=== PATIENT | male | born 1945 | race African-American/Black ===

== ENCOUNTER → 2020-08-16 13:28 | Outpatient (BNVA) | payer MEDICARE, SELFPAY | PROVIDERS: PCP Internal Medicine; Visit Provider Internal Medicine | DX: I48.20 Chronic atrial fibrillation, unspecified (principal); Z51.81 Encounter for therapeutic drug level monitoring; Z79.01 Long term (current) use of anticoagulants | CPT/HCPCS: 85610 ==

== ENCOUNTER → 2020-09-06 11:18 | Outpatient (BNVA) | payer MEDICARE, SELFPAY | PROVIDERS: PCP Internal Medicine; Referring Provider Internal Medicine; Visit Provider Internal Medicine | DX: I48.20 Chronic atrial fibrillation, unspecified (principal); Z79.01 Long term (current) use of anticoagulants; Z51.81 Encounter for therapeutic drug level monitoring | CPT/HCPCS: 85610; 99211 ==

== ENCOUNTER → 2020-09-30 10:28 | Outpatient (BNVA) | payer MEDICARE, SELFPAY | PROVIDERS: PCP Internal Medicine; Visit Provider Internal Medicine | DX: I48.20 Chronic atrial fibrillation, unspecified (principal); Z51.81 Encounter for therapeutic drug level monitoring; Z79.01 Long term (current) use of anticoagulants | CPT/HCPCS: 85610; 99211 ==

== ENCOUNTER → 2020-10-23 11:07 | Outpatient (BNVA) | payer MEDICARE, SELFPAY | PROVIDERS: PCP Internal Medicine; Visit Provider Internal Medicine | DX: I48.20 Chronic atrial fibrillation, unspecified (principal); Z79.01 Long term (current) use of anticoagulants; Z51.81 Encounter for therapeutic drug level monitoring | CPT/HCPCS: 85610; 99211 ==

== ENCOUNTER → 2020-11-11 10:02 | Outpatient (BNVA) | payer MEDICARE, SELFPAY | PROVIDERS: PCP Internal Medicine; Visit Provider Internal Medicine | DX: I48.20 Chronic atrial fibrillation, unspecified (principal); Z79.01 Long term (current) use of anticoagulants; Z51.81 Encounter for therapeutic drug level monitoring | CPT/HCPCS: 85610; 99211 ==

== ENCOUNTER → 2020-11-15 11:15 | Outpatient (BNVA) | payer MEDICARE, SELFPAY | PROVIDERS: PCP Internal Medicine; Visit Provider Internal Medicine | DX: I48.20 Chronic atrial fibrillation, unspecified (principal); Z51.81 Encounter for therapeutic drug level monitoring; Z79.01 Long term (current) use of anticoagulants | CPT/HCPCS: 85610; 99211 ==

== ENCOUNTER → 2020-11-22 10:05 | Outpatient (BNVA) | payer MEDICARE, SELFPAY | PROVIDERS: PCP Internal Medicine; Visit Provider Internal Medicine | DX: I48.20 Chronic atrial fibrillation, unspecified (principal); Z51.81 Encounter for therapeutic drug level monitoring; Z79.01 Long term (current) use of anticoagulants | CPT/HCPCS: 85610; 99211 ==

== ENCOUNTER → 2020-12-10 09:55 | Outpatient (BNVA) | payer MEDICARE, SELFPAY | PROVIDERS: PCP Internal Medicine; Visit Provider Internal Medicine | DX: I48.20 Chronic atrial fibrillation, unspecified (principal); Z51.81 Encounter for therapeutic drug level monitoring; Z79.01 Long term (current) use of anticoagulants | CPT/HCPCS: 85610; 99211 ==

== ENCOUNTER → 2020-12-20 10:05 | Outpatient (BNVA) | payer MEDICARE, SELFPAY | PROVIDERS: PCP Internal Medicine; Visit Provider Internal Medicine | DX: I48.20 Chronic atrial fibrillation, unspecified (principal); Z51.81 Encounter for therapeutic drug level monitoring; Z79.01 Long term (current) use of anticoagulants | CPT/HCPCS: 85610; 99211 ==

== ENCOUNTER → 2020-12-27 11:14 | Outpatient (BNVA) | payer MEDICARE, SELFPAY | PROVIDERS: PCP Internal Medicine; Visit Provider Internal Medicine | DX: I48.20 Chronic atrial fibrillation, unspecified (principal); Z51.81 Encounter for therapeutic drug level monitoring; Z79.01 Long term (current) use of anticoagulants | CPT/HCPCS: 85610; 99211 ==

== ENCOUNTER → 2021-01-10 13:00 | Outpatient (BNVA) | payer MEDICARE, SELFPAY | PROVIDERS: PCP Internal Medicine; Visit Provider Internal Medicine | DX: I48.20 Chronic atrial fibrillation, unspecified (principal); Z51.81 Encounter for therapeutic drug level monitoring; Z79.01 Long term (current) use of anticoagulants | CPT/HCPCS: 85610; 99211 ==

== ENCOUNTER → 2021-01-22 10:06 | Outpatient (BNVA) | payer MEDICARE, SELFPAY | PROVIDERS: PCP Internal Medicine; Visit Provider Internal Medicine | DX: I48.20 Chronic atrial fibrillation, unspecified (principal); Z51.81 Encounter for therapeutic drug level monitoring; Z79.01 Long term (current) use of anticoagulants | CPT/HCPCS: 85610; 99211 ==

== ENCOUNTER → 2021-01-30 10:34 | Outpatient (BNVA) | payer MEDICARE, SELFPAY | PROVIDERS: PCP Internal Medicine; Visit Provider Internal Medicine | DX: I48.20 Chronic atrial fibrillation, unspecified (principal); Z51.81 Encounter for therapeutic drug level monitoring; Z79.01 Long term (current) use of anticoagulants | CPT/HCPCS: 85610; 99211 ==

== ENCOUNTER → 2021-02-10 09:33 | Outpatient (BNVA) | payer MEDICARE, SELFPAY | PROVIDERS: PCP Internal Medicine; Visit Provider Internal Medicine | DX: I48.20 Chronic atrial fibrillation, unspecified (principal); Z79.01 Long term (current) use of anticoagulants; Z51.81 Encounter for therapeutic drug level monitoring | CPT/HCPCS: 85610; 99211 ==

== ENCOUNTER → 2021-02-18 11:19 | Outpatient (BNVA) | payer MEDICARE, SELFPAY | PROVIDERS: PCP Internal Medicine; Visit Provider Internal Medicine | DX: I48.20 Chronic atrial fibrillation, unspecified (principal); Z79.01 Long term (current) use of anticoagulants; Z51.81 Encounter for therapeutic drug level monitoring | CPT/HCPCS: 85610; 99211 ==

== ENCOUNTER → 2021-02-28 09:57 | Outpatient (BNVA) | payer MEDICARE, SELFPAY | PROVIDERS: PCP Internal Medicine; Visit Provider Internal Medicine | DX: I48.20 Chronic atrial fibrillation, unspecified (principal); Z51.81 Encounter for therapeutic drug level monitoring; Z79.01 Long term (current) use of anticoagulants | CPT/HCPCS: 85610; 99211 ==

== ENCOUNTER → 2021-03-07 10:20 | Outpatient (BNVA) | payer MEDICARE, SELFPAY | PROVIDERS: PCP Internal Medicine; Visit Provider Internal Medicine | DX: I48.20 Chronic atrial fibrillation, unspecified (principal); Z79.01 Long term (current) use of anticoagulants; Z51.81 Encounter for therapeutic drug level monitoring | CPT/HCPCS: 85610; 99211 ==

== ENCOUNTER → 2021-03-14 09:38 | Outpatient (BNVA) | payer MEDICARE, SELFPAY | PROVIDERS: PCP Internal Medicine; Visit Provider Internal Medicine | DX: I48.20 Chronic atrial fibrillation, unspecified (principal); Z51.81 Encounter for therapeutic drug level monitoring; Z79.01 Long term (current) use of anticoagulants | CPT/HCPCS: 85610; 99211 ==

== ENCOUNTER → 2021-03-28 10:08 | Outpatient (BNVA) | payer MEDICARE, SELFPAY | PROVIDERS: PCP Internal Medicine; Visit Provider Internal Medicine | DX: I48.20 Chronic atrial fibrillation, unspecified (principal); Z51.81 Encounter for therapeutic drug level monitoring; Z79.01 Long term (current) use of anticoagulants | CPT/HCPCS: 85610; 99211 ==

== ENCOUNTER → 2021-04-07 10:08 | Outpatient (BNVA) | payer MEDICARE, SELFPAY | PROVIDERS: PCP Internal Medicine; Visit Provider Internal Medicine | DX: I48.20 Chronic atrial fibrillation, unspecified (principal); Z51.81 Encounter for therapeutic drug level monitoring; Z79.01 Long term (current) use of anticoagulants | CPT/HCPCS: 85610; 99211 ==

== ENCOUNTER 2021-04-11 10:14 | Outpatient (REF) | payer MEDICARE, SELFPAY ==
--- NOTE | ~2021-04-11 | XR_ITS ---
EXAMINATION: XR HIP, LEFT CLINICAL INFORMATION: Left hip osteoarthritis. COMPARISON: None TECHNIQUE: Two views of the left hip. FINDINGS: There is no evidence of acute fracture or dislocation of the left hip. There is collar spurring present with some calcification of the superior labrum. There is some spurring about the greater trochanter. No destructive bony lesions identified. XR/XR hip LT min 2V IMPRESSION: Mild degenerative change of the left hip without acute fracture or dislocation. Calcific tendinitis greater trochanter.
== END 2021-04-11 10:15 | disposition home or self-care (01) ==
LOC: HO.XRAY 10:14
PROVIDERS: PCP Internal Medicine; Visit Provider Physical Medicine & Rehabilitation
DX: M16.12 Unilateral primary osteoarthritis, left hip (principal)
CPT/HCPCS: 73502; 85610; 99211

== ENCOUNTER → 2021-04-17 09:54 | Outpatient (BNVA) | payer MEDICARE, SELFPAY | PROVIDERS: PCP Internal Medicine; Visit Provider Internal Medicine | DX: I48.20 Chronic atrial fibrillation, unspecified (principal); Z51.81 Encounter for therapeutic drug level monitoring; Z79.01 Long term (current) use of anticoagulants | CPT/HCPCS: 85610; 99211 ==

== ENCOUNTER → 2021-04-25 09:58 | Outpatient (BNVA) | payer MEDICARE, SELFPAY | PROVIDERS: PCP Internal Medicine; Visit Provider Internal Medicine | DX: I48.20 Chronic atrial fibrillation, unspecified (principal); Z51.81 Encounter for therapeutic drug level monitoring; Z79.01 Long term (current) use of anticoagulants | CPT/HCPCS: 85610; 99211 ==

== ENCOUNTER → 2021-05-01 13:03 | Outpatient (BNVA) | payer MEDICARE, SELFPAY | PROVIDERS: PCP Internal Medicine; Visit Provider Internal Medicine | DX: I48.20 Chronic atrial fibrillation, unspecified (principal); Z51.81 Encounter for therapeutic drug level monitoring; Z79.01 Long term (current) use of anticoagulants | CPT/HCPCS: 85610; 99211 ==

== ENCOUNTER → 2021-05-09 10:54 | Outpatient (BNVA) | payer MEDICARE, SELFPAY | PROVIDERS: PCP Internal Medicine; Visit Provider Internal Medicine | DX: I48.20 Chronic atrial fibrillation, unspecified (principal); Z51.81 Encounter for therapeutic drug level monitoring; Z79.01 Long term (current) use of anticoagulants | CPT/HCPCS: 85610; 99211 ==

== ENCOUNTER → 2021-05-16 10:05 | Outpatient (BNVA) | payer MEDICARE, SELFPAY | PROVIDERS: PCP Internal Medicine; Visit Provider Internal Medicine | DX: I48.20 Chronic atrial fibrillation, unspecified (principal); Z51.81 Encounter for therapeutic drug level monitoring; Z79.01 Long term (current) use of anticoagulants | CPT/HCPCS: 85610; 99211 ==

== ENCOUNTER → 2021-05-27 10:24 | Outpatient (BNVA) | payer MEDICARE, SELFPAY | PROVIDERS: PCP Internal Medicine; Visit Provider Internal Medicine | DX: I48.20 Chronic atrial fibrillation, unspecified (principal); Z51.81 Encounter for therapeutic drug level monitoring; Z79.01 Long term (current) use of anticoagulants | CPT/HCPCS: 85610; 99211 ==

== ENCOUNTER 2021-06-03 09:49 | Outpatient (REF) | payer MEDICARE, SELFPAY ==
--- NOTE | ~2021-06-03 | XR_ITS ---
EXAMINATION: XR HIP, RIGHT CLINICAL INFORMATION: Pain. COMPARISON: CT abdomen and pelvis dated 02/23/2017. TECHNIQUE: AP and frog-leg lateral views of the right hip. FINDINGS: There is mild bony demineralization. There is mild narrowing of the right acetabular joint space. The right acetabular roof shows cortical surface irregularity and subchondral sclerosis. There is subchondral cyst formation of the right femoral head, which remains smooth. There is no acute fracture or dislocation. There are atherosclerotic calcifications. XR/XR hip RT min 2V IMPRESSION: Mild to moderate osteoarthritic change is seen of the right hip. There is no fracture or dislocation.
== END 2021-06-03 09:50 | disposition home or self-care (01) ==
LOC: HO.XRAY 09:49
PROVIDERS: Absent Provider Physician Assistant; PCP Internal Medicine; Visit Provider Internal Medicine
DX: I48.20 Chronic atrial fibrillation, unspecified (principal); M25.551 Pain in right hip; Z51.81 Encounter for therapeutic drug level monitoring; Z79.01 Long term (current) use of anticoagulants
CPT/HCPCS: 73502; 85610; 99211

== ENCOUNTER → 2021-06-12 10:02 | Outpatient (BNVA) | payer MEDICARE, SELFPAY | PROVIDERS: PCP Internal Medicine; Visit Provider Internal Medicine | DX: I48.20 Chronic atrial fibrillation, unspecified (principal); Z51.81 Encounter for therapeutic drug level monitoring; Z79.01 Long term (current) use of anticoagulants | CPT/HCPCS: 85610; 99211 ==

== ENCOUNTER → 2021-06-18 11:11 | Outpatient (BNVA) | payer MEDICARE, SELFPAY | PROVIDERS: PCP Internal Medicine; Visit Provider Internal Medicine | DX: I48.20 Chronic atrial fibrillation, unspecified (principal); Z51.81 Encounter for therapeutic drug level monitoring; Z79.01 Long term (current) use of anticoagulants | CPT/HCPCS: 85610; 99211 ==

== ENCOUNTER → 2021-07-02 10:38 | Outpatient (BNVA) | payer MEDICARE, SELFPAY | PROVIDERS: PCP Internal Medicine; Visit Provider Internal Medicine | DX: I48.20 Chronic atrial fibrillation, unspecified (principal); Z51.81 Encounter for therapeutic drug level monitoring; Z79.01 Long term (current) use of anticoagulants | CPT/HCPCS: 85610; 99211 ==

== ENCOUNTER 2023-06-04 08:36 | Day surgery (SDC) | payer MEDICARE, SELFPAY ==
[2023-06-04 06:29] VITALS: BMI 33.2
[2023-06-04 08:53] VITALS: BP 139/82; PULSE 79; RESP 20; TEMP 36.9; O2SAT 99
[2023-06-04 08:54] LABS: Glucose, Whole Blood 116 mg/dL (60-115)
[2023-06-04] MEDS: Lactated Ringers 1,000 ML 100 ML IVCONT (09:19)
[2023-06-04 09:21] LABS: INTERNATIONAL NORM RATIO 1.1 (0.9-1.1); Prothrombin Time 13.5 SEC (11.1-13.3)
--- NOTE | 2023-06-04 09:31 | P.CONAN_ITS ---
HPI - Anesthesia Eval Consult details Narrative: sceening PMFSH Active Problems Active Problems: All Active Problems (Updated 06/03/23 @ 13:41 by Coral Wood RN) Current use of anticoagulant therapy (Acute) Past Medical History Medical History (Updated 06/03/23 @ 13:41 by Coral Wood RN) Arthritis Atrial fibrillation BPH (benign prostatic hyperplasia) Depression Diabetes Diverticulosis HTN (hypertension) Hyperlipidemia Pacemaker Parkinsons Family History Family history of problems with anesthesia: No Surgical History Surgical History (Updated 06/03/23 @ 13:41 by Coral Wood RN) H/O colonoscopy H/O hernia repair History of left knee replacement History of right knee joint replacement History of Problems with Anesthesia: No Social History Social History Patient Tobacco Use Status: Former Tobacco user Are you DNR?: No Advance Directives: No Advance Directives Information Provided: Yes Nutrition Risks: No Nutritional Risk Meds Allergies Allergy/AdvReac Type Severity Reaction Status Date / Time hydrochlorothiazide Allergy Severe syncope Verified 07/02/21 10:42 falls chlorothiazide Allergy Unknown PASSES Verified 07/02/21 10:42 [CHLOROTHIAZIDE] OUT chlorthalidone Allergy Unknown UNKNOWN Verified 07/02/21 10:42 Active Medications: Current Medications Lactated Ringer's (Lr) 1,000 mls @ 100 mls/hr IVCONT .Q10H JOSE J Last Admin: 06/04/23 09:19 Dose: 100 mls/hr Home Medications Medication Instructions Recorded Confirmed Last Taken Type allopurinol 300 mg tablet mg PO 11/11/20 06/12/21 Unknown History blood sugar diagnostic #10 ea 11/11/20 06/12/21 Unknown History bupropion HCl 300 mg 24 hr tablet, 300 mg PO DAILY 11/11/20 06/12/21 Unknown History extended release ergocalciferol (vitamin D2) 1,250 1,250 mcg PO QWEEK 11/11/20 06/12/21 Unknown History mcg (50,000 unit) capsule insulin glargine 100 unit/mL (3 unit subcut 11/11/20 06/12/21 Unknown History mL) subcutaneous pen lisinopril 40 mg tablet mg PO 11/11/20 06/12/21 Unknown History metformin 500 mg tablet,extended 500 mg PO DAILY 11/11/20 06/12/21 Unknown History release 24 hr oxycodone-acetaminophen 5 mg-325 tab PO 11/11/20 06/12/21 Unknown History mg tablet pen needle, diabetic 31 gauge x #50 ea 11/11/20 06/12/21 Unknown History 01/14 pravastatin 80 mg tablet 80 mg PO DAILY 11/11/20 06/12/21 Unknown History tamsulosin 0.4 mg capsule mg PO 11/11/20 06/12/21 Unknown History citalopram 20 mg tablet 20 mg PO DAILY 01/22/21 06/12/21 Unknown History nifedipine 30 mg tablet,extended mg PO 01/30/21 06/12/21 Unknown History release nadolol 20 mg tablet 20 mg PO DAILY 03/07/21 06/12/21 Unknown History colchicine (gout) 0.6 mg tablet 0.6 mg PO DAILY 06/12/21 06/12/21 Unknown Histor y furosemide 40 mg tablet 40 mg PO DAILY 06/12/21 06/12/21 Unknown History Exam Exam Date and Time: June 04, 2023 0931 Height,Weight and Vital Signs: Height 5 ft 7.5 in Weight 97.522 kg Last Vital Signs Temp 98.4 F 06/04/23 08:53 Pulse 79 06/04/23 08:53 Resp 20 06/04/23 08:53 BP 139/82 06/04/23 08:53 Pulse Ox 99 06/04/23 08:53 O2 Del Method Room Air 06/04/23 08:53 Pertinent Lab Results Pertinent Lab Results: Laboratory Tests 06/04/23 06/04/23 08:48 09:00 PT 13.5 H INR 1.1 POC Glucose 116 H Airway Mallampati Class: II TM Dist: >3cm Neck ROM: Full Heart: rr Lungs: cts Assessment and Plan Assessment Anesthesia Assessment: Anesthesia Plan Discussed and Chart Reviewed Final Anesthetic Review Family History of Problems with Anesthesia: No History of Problems with Anesthesia: No NPO: Yes ASA Class: II Final Preanesthetic Review: No Changes in Pt Med Stat, Meds/Allgs Chart Reviewed, Consent Obtained/Reviewed and Anes Risks/Benef Reviewed Patient Risk: Low Procedure Risk: Low Anesthetic Plan Anesthetic Plan: MAC: Disposition: Standard PACU
--- NOTE | 2023-06-04 09:56 | MHC.SHP ---
Pre-Procedural Eval Section A Date of Service: 06/04/23 Section B Chief Complaint: Other fecal abnormalities Details of Present Illness: see H&P Relevant Family History (Specify if Yes): No Relevant Social History: None Present Medications: see Short Stay Collaborative assessment Medical History: No relevant PMH History of Previous Operations: No relevant previous surgery Allergies: Allergies Allergy/AdvReac Type Severity Reaction Status Date / Time hydrochlorothiazide Allergy Severe syncope Verified 07/02/21 10:42 falls chlorothiazide Allergy Unknown PASSES Verified 07/02/21 10:42 [CHLOROTHIAZIDE] OUT chlorthalidone Allergy Unknown UNKNOWN Verified 07/02/21 10:42 Review of Systems Sugical H&P ROS: Negative: Constitution, Cardiovascular, Respiratory, Neurological, Psychiatric, Hem-Onc, Allergic/Immunologic, Gastrointestinal, Genitourinary, Musculoskeletal, Integumentary, Endocrine and Eyes/Ears/Nose/Throat Exam Surgical H&P Exam: Normal: HEENT, Normal: Heart, Normal: Lungs, Normal: Extremities, Normal: Abdomen, Normal: Skin and Normal: Neurological Plan Diagnosis/Plan: Unchanged I have reviewed the history and physical and performed a pertinent physical examination on my patient. No changes have occurred unless specified. Time Spent With Patient Time: Total time managing care of this patient today ____ minutes.
[2023-06-04 11:05] VITALS: BP 112/64; PULSE 73; RESP 16; TEMP 36.1; O2SAT 96
--- NOTE | 2023-06-04 11:13 | P.BOP_ITS ---
Brief Operative Note Date of Service: 06/04/23 Pre-op diagnosis: bloodbl Surgeon: Yves Aquino Was an Protein Specialist used for this Procedure?: No
[2023-06-04 11:20] VITALS: BP 152/85; PULSE 85; RESP 20; TEMP 36.4; O2SAT 98
--- NOTE | 2023-06-04 13:30 | OP_ITS ---
DATE OF SERVICE: 06/04/2023 SURGEON: Yves Aquino MD INDICATIONS: Blood in the stool. PREOPERATIVE DIAGNOSIS: POSTOPERATIVE DIAGNOSIS: PROCEDURE PERFORMED: Upper endoscopy with biopsy, colonoscopy to the terminal ileum. ESTIMATED BLOOD LOSS: COMPLICATIONS: ANESTHESIA: Monitored anesthesia care. ASSISTANTS: SPECIMENS: DESCRIPTION OF PROCEDURE: A history and physical was performed. The risks and benefits of the procedure were explained to the patient. Informed consent was obtained. The patient was placed in the left lateral decubitus position. The Olympus video gastroscope was introduced into the esophagus, stomach, and duodenum. Examination was performed, and the scope was removed. He tolerated the procedure well, was repositioned for colonoscopy. Digital rectal exam was performed and was found to be normal. The Olympus pediatric video colonoscope was introduced into the rectum and advanced to the cecum. The cecum was identified by transillumination, palpation, and identification of the ileocecal valve. Examination was performed. The scope was removed. He tolerated both procedures well and was returned to the recovery area in stable condition. FINDINGS: Upper endoscopy: 1. Esophagus: The esophagus was normal. There was a 2 to 3 cm hiatal hernia. 2. Stomach: The stomach was normal. Antral biopsies were obtained. 3. Duodenum: The bulb and 2nd portion were normal. Colonoscopy: The terminal ileum was normal. The visualized colonic mucosa was normal. The quality of the prep was good. The sigmoid was quite tortuous due to diverticular disease with luminal narrowing and angulation. This made it somewhat challenging to pass the scope, but it was able to go through the narrowed area. No mass lesions were identified. Diverticulosis was noted to a moderate degree. No polyps were seen. Retroflexed examination showed some internal hemorrhoids. IMPRESSION: 1. Hiatal hernia. 2. Unremarkable colonoscopy, diverticulosis. RECOMMENDATION: 1. Follow up the biopsy results. 2. Colon cancer screening is not recommended based on the patient's age. MD VALERIY Riddle/GISELL / [phone]
== END 2023-06-04 11:50 | disposition home or self-care (01) ==
PROVIDERS: Anesthesiology; PCP Internal Medicine; Visit Provider Internal Medicine Gastroenterology
PROC: (CPT 45378; principal; 2023-06-04 09:30)
DX: R19.5 Other fecal abnormalities (principal); K57.30 Diverticulosis of large intestine without perforation or abscess without bleeding; K64.8 Other hemorrhoids; K59.00 Constipation, unspecified; K44.9 Diaphragmatic hernia without obstruction or gangrene; N40.0 Benign prostatic hyperplasia without lower urinary tract symptoms; I10 Essential (primary) hypertension; I48.91 Unspecified atrial fibrillation; Z95.0 Presence of cardiac pacemaker; G20 Parkinson's disease; E78.00 Pure hypercholesterolemia, unspecified; F32.A Depression, unspecified; Z79.01 Long term (current) use of anticoagulants; Z79.84 Long term (current) use of oral hypoglycemic drugs; Z79.899 Other long term (current) drug therapy; Z96.653 Presence of artificial knee joint, bilateral; Z87.891 Personal history of nicotine dependence
CPT/HCPCS: 45378; 43239; 36415; 82947; 85610; 88305; 88342

== ENCOUNTER 2023-07-23 08:51 | Outpatient (AMB) | payer MEDICARE, SELFPAY ==
--- NOTE | 2023-07-23 09:11 | A.OFFVIS_ITS ---
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 Allergies hydrochlorothiazide Allergy (Severe, Verified 07/23/23 09:12) syncope falls chlorothiazide [CHLOROTHIAZIDE] Allergy (Unknown, Verified 07/23/23 09:12) PASSES OUT chlorthalidone Allergy (Unknown, Verified 07/23/23 09:12) UNKNOWN Medication List - Last Reconciled 07/23/23 by Autumn Davis MD allopurinol mg PO amlodipine 10 mg PO DAILY atorvastatin 40 mg PO DAILY blood sugar diagnostic As directed bupropion HCl 300 mg PO DAILY carbidopa-levodopa 25-100 mg 1 tab PO BID citalopram 20 mg PO DAILY colchicine (gout) 0.6 mg PO DAILY ergocalciferol (vitamin D2) 1,250 mcg PO QWEEK flash glucose scanning reader (FreeStyle Asif 2 [place]) As directed flash glucose sensor (FreeStyle Asif 2 Sensor kit) As directed furosemide 40 mg PO DAILY furosemide 20 mg PO BID insulin glargine units subcut insulin glargine U-300 conc (Toujeo SoloStar U-300 Insulin) units subcut lisinopril mg PO metformin ER 500 mg PO DAILY metoprolol succinate ER 25 mg PO DAILY nadolol 20 mg PO DAILY nifedipine ER mg PO oxycodone-acetaminophen 5-325 mg tabs PO pen needle, diabetic As directed pravastatin 80 mg PO DAILY warfarin 5 mg See Protocol PO DAILY HPI HPI Comments History of Present Illness Details 78y/o right handed male comes for [facility] r management of parkinsons disease. He started noticing right hand tremors about 2 years ago and now has tremors in both hands. It can be at rest and with action. He also noticed difficulty with fine motor coordination. He is also having some freezing episodes.No memory issues. He had a neuropsych eval c/w mild dementia .His voice is softer. He has sleep talking screaming in sleep. He has ARCELIA and uses CPAP. At night when he wakes up to use the bathroom if its dark he sees a plant.He has depression and anxiety . He is motivated but gets discouraged. He denies drooling. His handwriting is smaller. He has difficulty using a fork . He has some difficulty dressing. No help with taking a shower. He uses a walker , very slow. No recent falls. He used to fall frequently. He also has chronic dizziness - lightheadedness and feels like he is going to pass out. He had traumatic ICH 5 years ago - did not need surgery . His bowel movements are regular. [facility] Medical History Hallucinations Dementia Idiopathic Parkinson's disease Diverticulosis Parkinsons BPH (benign prostatic hyperplasia) Arthritis Pacemaker Hyperlipidemia Depression Diabetes HTN (hypertension) Atrial fibrillation Surgical History H/O shoulder surgery H/O hernia repair History of right knee joint replacement History of left knee replacement H/O colonoscopy Family History Family/Other No problems noted. Social History Alcohol intake: current Alcohol intake frequency: holidays/special occasions only Patient Tobacco Use Status: Former Tobacco user Review of Systems Const Reports difficulty sleeping, Denies weakness and Reports weight gain ENT Reports disequilibrium GI Reports constipation Musc Reports back pain and Reports arthralgias Neuro Reports tremor(s), Reports disequilibrium and Denies weakness Psych Reports depression Physical Exam Vital Signs: Last Vital Signs Pulse 83 07/23/23 09:19 BP 126/86 07/23/23 09:19 Pulse Ox 98 07/23/23 09:19 Oxygen Delivery Method Room Air 07/23/23 09:19 BMI result Body Mass Index 33.1 Const General: cooperative, healthy appearing and comfortable Nutritional Appearance: overweight Orientation/consciousness: patient oriented x3 Eyes Pupils: Equal, round and reactive pupils present Neuro Other: Decreased facial expressiona nd blink Mild asymmetry - right palpebral fissure widened Restricted right shoulder movement No rest tremors mild samantha postural tremors No cog wheel rigidity FFM decreased R>L Foot taps severely decreased R>L gait-with walker- shorter stride freezing General: patient oriented x3 and moves all extremities Cranial nerves: Yes Equal, round and reactive pupils present, Yes Bilaterally intact EOM present, Yes Nystagmus not present, Yes Normal facial strength present and Yes Midline tongue present Motor exam (neuro): 5/5 motor strength present throughout Deep tendon reflexes (DTR's): Right triceps reflex intensity grade: 1+, Left triceps reflex intensity grade: 1+, Rt Biceps (C5, C6): 1+, Left biceps reflex intensity grade: 1+, Right brachioradialis reflex intensity grade: 1+ and Left brachioradialis reflex intensity grade: 1+ Coordination: [id number] test normal Results Reviewed Results Reviewed: KIM scan- 01/2023 decreased activity in left putamen Assessment & Plan Assessment & Plan (1) Idiopathic Parkinson's disease: Code(s): G20 - Parkinson's disease (2) Dementia: Code(s): F03.90 - Unspecified dementia, unspecified severity, without behavioral disturbance, psychotic disturbance, mood disturbance, and anxiety (3) Hallucinations: Code(s): R44.3 - Hallucinations, unspecified Plan I suggested to increase sinemet 25/100 tid Check supine and standing BP in AM to monitor for OH Continue PT ( BIG program) Monitor for increase in hallucinations Medications: New carbidopa-levodopa 25-100 mg 1 tab PO TID 90 tabs 6RF Coding Level of Care Code New Pt Level 4 (85628) Diagnoses Idiopathic Parkinson's disease G20 Dementia F03.90 Hallucinations R44.3
[2023-07-23 09:19] VITALS: BP 126/86; PULSE 83; O2SAT 98; BMI 33.1
== END 2023-07-23 09:48 | disposition home or self-care (01) ==
PROVIDERS: Visit Provider Psychiatry & Neurology Neurology
DX: G20 Parkinson's disease (principal); F03.90 Unspecified dementia, unspecified severity, without behavioral disturbance, psychotic disturbance, mood disturbance, and anxiety; R44.3 Hallucinations, unspecified
CPT/HCPCS: 99204

== ENCOUNTER → 2023-07-23 08:51 | Outpatient (BNVA) | payer MEDICARE, SELFPAY | PROVIDERS: Visit Provider Psychiatry & Neurology Neurology ==

== ENCOUNTER 2023-11-22 14:18 | Outpatient (AMB) | payer MEDICARE, SELFPAY ==
--- NOTE | 2023-11-22 14:22 | MHC.OFFVIS ---
Intake Vital Signs 11/22/23 14:25 Height 5 ft 9 in Weight 222 lb 6 oz BMI 32.8 BP 142/74 H Blood Pressure Location Rt brachial Position Sitting Respiration 17 Pulse 76 Pulse Source Pulse Oximeter Intake Visit Reasons: 6 mnts f/u for Parkinson's - Confirmed Intake Note: Pt presents to the office for 4 month follow up for dementia. Medical Equipment Repair Technician Required: No Allergies hydrochlorothiazide Allergy (Severe, Verified 11/22/23 14:24) syncope falls chlorothiazide [CHLOROTHIAZIDE] Allergy (Unknown, Verified 11/22/23 14:24) PASSES OUT chlorthalidone Allergy (Unknown, Verified 11/22/23 14:24) UNKNOWN HPI HPI Comments History of Present Illness Details 78y/o right handed male comes for follow up of parkinsons disease and dementia. He is missing his middle of the days often . He has noticed some slowing. He also has sleep talking. He started noticing right hand tremors about 2 years ago and now has tremors in both hands. It can be at rest and with action. He also noticed difficulty with fine motor coordination. He is also having some freezing episodes.No memory issues. He had a neuropsych eval c/w mild dementia .His voice is softer. He has sleep talking screaming in sleep. He has ARCELIA and uses CPAP. At night when he wakes up to use the bathroom if its dark he sees a plant.He has depression and anxiety . He is motivated but gets discouraged. He denies drooling. His handwriting is smaller. He has difficulty using a fork . He has some difficulty dressing. No help with taking a shower. He uses a walker , very slow. No recent falls. He used to fall frequently. He also has chronic dizziness - lightheadedness and feels like he is going to pass out. He had traumatic ICH 5 years ago - did not need surgery . His bowel movements are regular. [facility] Medical History Hallucinations Dementia Idiopathic Parkinson's disease Diverticulosis Parkinsons BPH (benign prostatic hyperplasia) Arthritis Pacemaker Hyperlipidemia Depression Diabetes HTN (hypertension) Atrial fibrillation Surgical History H/O shoulder surgery H/O hernia repair History of right knee joint replacement History of left knee replacement H/O colonoscopy Family History Family/Other No problems noted. Social History Alcohol intake: current Alcohol intake frequency: holidays/special occasions only Patient Tobacco Use Status: Former Tobacco user Physical Exam Vital Signs: Last Vital Signs Pulse 76 11/22/23 14:25 Resp 17 11/22/23 14:25 BP 142/74 H 11/22/23 14:25 BMI result Body Mass Index 32.8 Const General: cooperative, healthy appearing and comfortable Nutritional Appearance: overweight Orientation/consciousness: patient oriented x3 Eyes Pupils: Equal, round and reactive pupils present Neuro Other: Decreased facial expressiona nd blink Mild asymmetry - right palpebral fissure widened Restricted right shoulder movement No rest tremors mild samantha postural tremors No cog wheel rigidity FFM decreased R>L Foot taps severely decreased R>L gait-with walker- shorter stride freezing General: patient oriented x3 and moves all extremities Cranial nerves: Yes Equal, round and reactive pupils present, Yes Bilaterally intact EOM present, Yes Nystagmus not present, Yes Normal facial strength present and Yes Midline tongue present Motor exam (neuro): 5/5 motor strength present throughout Coordination: [id number] test normal Assessment & Plan Assessment & Plan (1) Idiopathic Parkinson's disease: Code(s): G20 - Parkinson's disease (2) Dementia: Code(s): F03.90 - Unspecified dementia, unspecified severity, without behavioral disturbance, psychotic disturbance, mood disturbance, and anxiety (3) Hallucinations: Code(s): R44.3 - Hallucinations, unspecified Plan Increase sinemet 25/100 tid- qid Check supine and standing BP in AM to monitor for OH Continue PT ( BIG program) Monitor for increase in hallucinations I will trial him on namenda XR 7 mg qd Melatonin 3mg qhs as needed Medications: New memantine 7 mg PO DAILY 30 ea 6RF Coding Level of Care Code Est Pt Level 4 (47680) Diagnoses Idiopathic Parkinson's disease G20 Dementia F03.90 Hallucinations R44.3
[2023-11-22 14:25] VITALS: BP 142/74; PULSE 76; RESP 17; BMI 32.8
== END 2023-11-22 14:48 | disposition home or self-care (01) ==
PROVIDERS: PCP Internal Medicine; Visit Provider Psychiatry & Neurology Neurology
DX: G20.A2 Parkinson's disease without dyskinesia, with fluctuations (principal); F02.A2 Dementia in other diseases classified elsewhere, mild, with psychotic disturbance
CPT/HCPCS: 99214

== ENCOUNTER → 2023-11-22 14:18 | Outpatient (BNVA) | payer MEDICARE, SELFPAY | PROVIDERS: PCP Internal Medicine; Visit Provider Psychiatry & Neurology Neurology | DX: G20.A1 Parkinson's disease without dyskinesia, without mention of fluctuations (principal); F03.90 Unspecified dementia, unspecified severity, without behavioral disturbance, psychotic disturbance, mood disturbance, and anxiety; R44.3 Hallucinations, unspecified | CPT/HCPCS: 99212 ==

== ENCOUNTER 2024-02-22 15:20 | Outpatient (AMB) | payer MEDICARE, SELFPAY ==
--- NOTE | 2024-02-22 15:34 | A.OFFVIS_ITS ---
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 Cognition is worse The tremors are intermittent. He started noticing right hand tremors about 3 years ago and now has tremors in both hands. It can be at rest and with action. He also noticed difficulty with fine motor coordination. He is also having some freezing episodes.No memory issues. He had a neuropsych eval c/w mild dementia .His voice is softer. He has ARCELIA and uses CPAP- as per noncompliant. He has depression and anxiety . He denies drooling. His handwriting is smaller. He has difficulty using a fork . He has some difficulty dressing. No help with taking a shower. He uses a walker , very slow. No recent falls. He used to fall frequently. He also has chronic dizziness - lightheadedness and feels like he is going to pass out. He had traumatic ICH 5 years ago - did not need surgery . His bowel movements are regular. [facility] Medical History (Updated 02/22/24 @ 15:55 by Autumn Davis MD) Parkinson's disease without dyskinesia, without mention of fluctuations ARCELIA on CPAP Hallucinations Dementia Idiopathic Parkinson's disease Diverticulosis Parkinsons BPH (benign prostatic hyperplasia) Arthritis Pacemaker Hyperlipidemia Depression Diabetes HTN (hypertension) Atrial fibrillation Surgical History H/O shoulder surgery H/O hernia repair History of right knee joint replacement History of left knee replacement H/O colonoscopy Family History Family/Other No problems noted. Social History Alcohol intake: current Alcohol intake frequency: holidays/special occasions only Patient Tobacco Use Status: Former Tobacco user Physical Exam Vital Signs: Last Vital Signs Pulse 78 02/22/24 15:35 Resp 17 02/22/24 15:35 BP 142/78 H 02/22/24 15:35 Pulse Ox 96 02/22/24 15:35 Oxygen Delivery Method Room Air 02/22/24 15:35 BMI result Body Mass Index 32.5 Const General: cooperative, healthy appearing and comfortable Nutritional Appearance: overweight Orientation/consciousness: patient oriented x3 Eyes Pupils: Equal, round and reactive pupils present Neuro Other: Decreased facial expressiona nd blink Mild asymmetry - right palpebral fissure widened Restricted right shoulder movement No rest tremors mild samantha postural tremors No cog wheel rigidity FFM decreased R>L Foot taps severely decreased R>L gait-with walker- shorter stride freezing General: patient oriented x3 and moves all extremities Cranial nerves: Yes Equal, round and reactive pupils present, Yes Bilaterally intact EOM present, Yes Nystagmus not present, Yes Normal facial strength present and Yes Midline tongue present Motor exam (neuro): 5/5 motor strength present throughout Coordination: [id number] test normal Assessment & Plan Assessment & Plan (1) Parkinson's disease without dyskinesia, without mention of fluctuations: Code(s): G20.A1 - Parkinson's disease without dyskinesia, without mention of fluctuations Category: Medical (2) Dementia: Code(s): F03.90 - Unspecified dementia, unspecified severity, without behavioral disturbance, psychotic disturbance, mood disturbance, and anxiety Category: Medical (3) ARCELIA on CPAP: Code(s): G47.33 - Obstructive sleep apnea (adult) (pediatric) Category: Medical (4) Hallucinations: Code(s): R44.3 - Hallucinations, unspecified Category: Medical Plan Increase sinemet 25/100 qid Monitor for increase in hallucinations Increase namenda XR 14 mg qd X 2 weeks then 21mg 2 weeks then 28mg qd Increase Melatonin 5mg qhs as needed Restart CPAP - mask fitting Orders: Orders PT Evaluation and Treatment Today G20.A1 - Parkinson's disease without dyskinesia, without mention of fluctuations Medications: New memantine after 21 mg course 28 mg PO DAILY 90 ea 0RF Changed From memantine 7 mg PO DAILY 90 days 90 ea 2RF To memantine 21 mg PO DAILY 14 ea 0RF 14 days Coding Level of Care Code Est Pt Level 4 (90144) Diagnoses Parkinson's disease without dyskinesia, without mention of fluctuations G20.A1 Dementia F03.90 ARCELIA on CPAP G47.33 Hallucinations R44.3
[2024-02-22 15:35] VITALS: BP 142/78; PULSE 78; RESP 17; O2SAT 96; BMI 32.5
== END 2024-02-22 16:10 | disposition home or self-care (01) ==
PROVIDERS: PCP Internal Medicine; Visit Provider Psychiatry & Neurology Neurology
DX: G20.A1 Parkinson's disease without dyskinesia, without mention of fluctuations (principal); F03.90 Unspecified dementia, unspecified severity, without behavioral disturbance, psychotic disturbance, mood disturbance, and anxiety; G47.33 Obstructive sleep apnea (adult) (pediatric); R44.3 Hallucinations, unspecified
CPT/HCPCS: 99214

== ENCOUNTER → 2024-02-22 15:20 | Outpatient (BNVA) | payer MEDICARE, SELFPAY | PROVIDERS: PCP Internal Medicine; Visit Provider Psychiatry & Neurology Neurology | DX: G20.A1 Parkinson's disease without dyskinesia, without mention of fluctuations (principal); F02.80 Dementia in other diseases classified elsewhere, unspecified severity, without behavioral disturbance, psychotic disturbance, mood disturbance, and anxiety; G47.33 Obstructive sleep apnea (adult) (pediatric); R44.3 Hallucinations, unspecified; Z99.89 Dependence on other enabling machines and devices | CPT/HCPCS: 99212 ==

== ENCOUNTER 2024-07-07 12:23 | Outpatient (AMB) | payer MEDICARE, SELFPAY ==
[2024-07-07 12:42] VITALS: BP 126/70; PULSE 84; RESP 16; BMI 32.4
--- NOTE | 2024-07-07 12:42 | A.OFFVIS_ITS ---
Vital Signs 07/07/24 12:42 Height 5 ft 9 in Weight 219 lb 8 oz BMI 32.4 BP 126/70 Blood Pressure Location Rt brachial Position Sitting Respiration 16 Pulse 84 Pulse Source Palpation Intake Visit Reasons: 4 mon follow up Intake Note: Pt presents tot he office for a 4 month follow up for dementia. Manager Wastewater Required: No Allergies hydrochlorothiazide Allergy (Severe, Verified 07/07/24 12:42) syncope falls chlorothiazide [CHLOROTHIAZIDE] Allergy (Unknown, Verified 07/07/24 12:42) PASSES OUT chlorthalidone Allergy (Unknown, Verified 07/07/24 12:42) UNKNOWN HPI Comments Details: 79y/o right handed male comes for follow up of parkinsons disease and dementia, ARCELIA .He sleeps a lot - has vivid dreaming and talks during sleep and he has excessive daytime fatigue.He is not able to use CPAP consistently - mask is uncofortable and he also malone REM behavior disorder. Cognition is stable - he is on memantine 14 mg could not tolerate higher dose. The tremors are intermittent. He started noticing right hand tremors about 3 years ago and now has tremors in both hands. It can be at rest and with action. He also noticed difficulty with fine motor coordination. He is also having some freezing episodes.No memory issues. He had a neuropsych eval c/w mild dementia .His voice is softer. He has depression and anxiety . He denies drooling. His handwriting is smaller. He has difficulty using a fork . He has some difficulty dressing. No help with taking a shower. He uses a walker , very slow. No recent falls. He used to fall frequently. He also has chronic dizziness - lightheadedness and feels like he is going to pass out. He had traumatic ICH 5 years ago - did not need surgery . His bowel movements are regular. [facility] Medical History Parkinson's disease without dyskinesia, without mention of fluctuations ARCELIA on CPAP Hallucinations Dementia Idiopathic Parkinson's disease Diverticulosis Parkinsons BPH (benign prostatic hyperplasia) Arthritis Pacemaker Hyperlipidemia Depression Diabetes HTN (hypertension) Atrial fibrillation Surgical History H/O shoulder surgery H/O hernia repair History of right knee joint replacement History of left knee replacement H/O colonoscopy Family History Family/Other No problems noted. Social History Alcohol intake: current Alcohol intake frequency: holidays/special occasions only Patient Tobacco Use Status: Former Tobacco user Physical Exam Vital Signs: Last Vital Signs Pulse 84 07/07/24 12:42 Resp 16 07/07/24 12:42 BP 126/70 07/07/24 12:42 BMI result Body Mass Index 32.4 Const General: cooperative, healthy appearing and comfortable Nutritional Appearance: overweight Orientation/consciousness: patient oriented x3 Eyes Pupils: Equal, round and reactive pupils present Neuro Other: Decreased facial expressiona nd blink Mild asymmetry - right palpebral fissure widened Restricted right shoulder movement No rest tremors mild samantha postural tremors No cog wheel rigidity FFM decreased R>L Foot taps severely decreased R>L gait-with walker- shorter stride freezing General: patient oriented x3 and moves all extremities Cranial nerves: Yes Equal, round and reactive pupils present, Yes Bilaterally intact EOM present, Yes Nystagmus not present, Yes Normal facial strength present and Yes Midline tongue present Motor exam (neuro): 5/5 motor strength present throughout Coordination: [id number] test normal Assessment & Plan Assessment & Plan (1) Parkinson's disease without dyskinesia, without mention of fluctuations: Code(s): G20.A1 - Parkinson's disease without dyskinesia, without mention of fluctuations Category: Medical (2) Dementia: Code(s): F03.90 - Unspecified dementia, unspecified severity, without behavioral disturbance, psychotic disturbance, mood disturbance, and anxiety Category: Medical (3) ARCELIA on CPAP: Code(s): G47.33 - Obstructive sleep apnea (adult) (pediatric) Category: Medical (4) Hallucinations: Code(s): R44.3 - Hallucinations, unspecified Category: Medical Plan Increase sinemet 25/100 qid Monitor for increase in hallucinations Continue namenda XR 14 mg qd - did not tolerate 21 mg Restart Melatonin 5mg qhs Restart CPAP - mask fitting will review s note Medications: Changed From carbidopa-levodopa 25-100 mg 1 tab PO TID 90 days 270 tabs 2RF To carbidopa-levodopa 25-100 mg 1 tab PO QID 90 days 360 tabs 2RF From memantine 14 mg PO DAILY 30 days 30 ea 6RF To memantine 14 mg PO DAILY 90 days 90 ea 6RF Coding Level of Care Code Est Pt Level 4 (07882) Complex EM visit Add On G2211 Diagnoses Parkinson's disease without dyskinesia, without mention of fluctuations G20.A1 Dementia F03.90 ARCELIA on CPAP G47.33 Hallucinations R44.3
== END 2024-07-07 13:13 | disposition home or self-care (01) ==
PROVIDERS: PCP Internal Medicine; Visit Provider Psychiatry & Neurology Neurology
DX: G20.A1 Parkinson's disease without dyskinesia, without mention of fluctuations (principal); F03.90 Unspecified dementia, unspecified severity, without behavioral disturbance, psychotic disturbance, mood disturbance, and anxiety; G47.33 Obstructive sleep apnea (adult) (pediatric); R44.3 Hallucinations, unspecified
CPT/HCPCS: 99214; G2211

== ENCOUNTER → 2024-07-07 12:23 | Outpatient (BNVA) | payer MEDICARE, SELFPAY | PROVIDERS: PCP Internal Medicine; Visit Provider Psychiatry & Neurology Neurology | DX: G20.A1 Parkinson's disease without dyskinesia, without mention of fluctuations (principal); F02.80 Dementia in other diseases classified elsewhere, unspecified severity, without behavioral disturbance, psychotic disturbance, mood disturbance, and anxiety; G47.33 Obstructive sleep apnea (adult) (pediatric); R44.3 Hallucinations, unspecified | CPT/HCPCS: 99212 ==

== ENCOUNTER 2024-08-01 11:00 | Outpatient (RCR) | payer MEDICARE, SELFPAY ==
[2024-03-24 06:57] VITALS: BP 110/60; PULSE 72; O2SAT 94
== END 2024-10-05 09:57 | disposition home or self-care (01) ==
LOC: HO.PTWFD 11:00
PROVIDERS: PCP Internal Medicine; Visit Provider Psychiatry & Neurology Neurology
DX: G20.A1 Parkinson's disease without dyskinesia, without mention of fluctuations (principal)
CPT/HCPCS: 97110; 97116; 97140; 97163; 97164; 97530

== ENCOUNTER 2025-01-24 15:01 | Outpatient (AMB) | payer MEDICARE, SELFPAY ==
[2025-01-24 15:09] VITALS: BP 138/84; PULSE 57; O2SAT 100; BMI 34.4
--- NOTE | 2025-01-24 15:09 | A.OFFVIS_ITS ---
Vital Signs 01/24/25 15:09 Height 5 ft 9 in Weight 233 lb BMI 34.4 BP 138/84 Blood Pressure Location Rt brachial Position Sitting Pulse 57 Pulse Source Pulse Oximeter Pulse Oximetry (%) 100 Oxygen Delivery Method Room Air Intake Visit Reasons: Follow Up 6mo Intake Note: Patient following up on Dementia and compliance. pt. is non compliant Allergies hydrochlorothiazide Allergy (Severe, Verified 01/24/25 15:13) syncope falls chlorothiazide [CHLOROTHIAZIDE] Allergy (Unknown, Verified 01/24/25 15:13) PASSES OUT chlorthalidone Allergy (Unknown, Verified 01/24/25 15:13) UNKNOWN HPI Comments Details: 80y/o right handed male comes for follow up of parkinsons disease and dementia, ARCELIA .He is doing better with sinemet 25/100 qid . No hallucinations He is using his CPAP regularly now since he changed mask He sleeps for 2 hrs after breakfast and stays good the rest of the day. - He has occasional vivid dreaming . Cognition is stable - he is on memantine 14 mg could not tolerate higher dose. The tremors are intermittent. History from initial visit-He started noticing right hand tremors about 3 years ago and now has tremors in both hands. It can be at rest and with action. He also noticed difficulty with fine motor coordination. He is also having some freezing episodes.No memory issues. He had a neuropsych eval c/w mild dementia .His voice is softer. He has depression and anxiety . He denies drooling. His handwriting is smaller. He has difficulty using a fork . He has some difficulty dressing. No help with taking a shower. He uses a walker , very slow. No recent falls. He used to fall frequently. He also has chronic dizziness - lightheadedness and feels like he is going to pass out. He had traumatic ICH 5 years ago - did not need surgery . His bowel movements are regular. [facility] Medical History Parkinson's disease without dyskinesia, without mention of fluctuations ARCELIA on CPAP Hallucinations Dementia Idiopathic Parkinson's disease Diverticulosis Parkinsons BPH (benign prostatic hyperplasia) Arthritis Pacemaker Hyperlipidemia Depression Diabetes HTN (hypertension) Atrial fibrillation Surgical History H/O shoulder surgery H/O hernia repair History of right knee joint replacement History of left knee replacement H/O colonoscopy Family History Family/Other No problems noted. Social History Alcohol intake: current Alcohol intake frequency: holidays/special occasions only Patient Tobacco Use Status: Former Tobacco user Physical Exam Vital Signs: Last Vital Signs Pulse 57 01/24/25 15:09 BP 138/84 01/24/25 15:09 Pulse Ox 100 01/24/25 15:09 Oxygen Delivery Method Room Air 01/24/25 15:09 BMI result Body Mass Index 34.4 Const General: cooperative, healthy appearing and comfortable Nutritional Appearance: overweight Orientation/consciousness: patient oriented x3 Eyes Pupils: Equal, round and reactive pupils present Neuro Other: Decreased facial expression and blink( midl 0 improved since last visit) Mild asymmetry - right palpebral fissure widened Restricted right shoulder movement No rest tremors No tremors today No cog wheel rigidity FFM decreased R>L Foot taps severely decreased R>L gait-with walker- shorter stride freezing General: patient oriented x3 and moves all extremities Cranial nerves: Yes Equal, round and reactive pupils present, Yes Bilaterally intact EOM present, Yes Nystagmus not present, Yes Normal facial strength present and Yes Midline tongue present Motor exam (neuro): 5/5 motor strength present throughout Coordination: [id number]-[id number] test normal Assessment & Plan Assessment & Plan (1) Parkinson's disease without dyskinesia, without mention of fluctuations: Code(s): G20.A1 - Parkinson's disease without dyskinesia, without mention of fluctuations Category: Medical Qualifiers: Fluctuating manifestations: without fluctuating manifestations Qualified Code(s): G20.A1 - Parkinson's disease without dyskinesia, without mention of fluctuations (2) Dementia: Code(s): F03.90 - Unspecified dementia, unspecified severity, without behavioral disturbance, psychotic disturbance, mood disturbance, and anxiety Category: Medical Qualifiers: Dementia type: unspecified type Dementia severity: mild Dementia behavioral or psychological symptom: without behavioral, psychotic, or mood disturbance or anxiety Qualified Code(s): F03.A0 - Unspecified dementia, mild, without behavioral disturbance, psychotic disturbance, mood disturbance, and anxiety (3) ARCELIA on CPAP: Code(s): G47.33 - Obstructive sleep apnea (adult) (pediatric) Category: Medical Plan sinemet 25/100 qid Monitor for increase in hallucinations Continue namenda XR 14 mg qd - did not tolerate 21 mg Restart Melatonin 5mg qhs CPAP compliance stressed Dr. Terry did not think he is a surgical candidate Coding Level of Care Code Est Pt Level 4 (93928) Complex EM visit Add On G2211 Diagnoses Parkinson's disease without dyskinesia or fluctuating manifestations G20.A1 Fluctuating manifestations: without fluctuating manifestations Mild dementia without behavioral disturbance, psychotic disturbance, mood disturbance, or anxiety, unspecified dementia type F03.A0 Dementia type: unspecified type Dementia severity: mild Dementia behavioral or psychological symptom: without behavioral, psychotic, or mood disturbance or anxiety ARCELIA on CPAP G47.33
--- OUTSIDE RECORDS SUMMARY | 2025-01-24 18:03 | XMS_ITS | Clinical Summary ---
Author Organization [facility] Address [address] [place] [id number] Phone Care Team Providers Care Car Worker Helper Name Role Phone Malachi Victor MD Primary Care Provider [phone] Allergies Active Allergy Reactions Criticality Noted Date Comments Chlorthalidone Other (see comments) 09/21/2014 Severe hyponatremia Finasteride 07/12/2018 dizziness Hydrochlorothiazide 03/24/2021 Medications buPROPion XL (WELLBUTRIN XL) 300 MG 24 hr tablet Take 300 mg by mouth every morning 02/19/2021 Active warfarin (COUMADIN) 5 MG tablet 12/18/2020 Active allopurinol (ZYLOPRIM) 300 MG tablet Take 150 mg by mouth 1 (one) time each day 10/27/2021 Active colchicine 0.6 MG tablet Take 1 tablet by mouth 1 (one) time each day 05/27/2021 Active warfarin (COUMADIN) 2.5 MG tablet 01/05/2023 Active oxyCODONE-aceta minophen (PERCOCET) 5-325 MG per tablet 1 TAB BY MOUTH UP TO THREE TIMES A DAY NEEDED FOR SEVERE PAIN. PARTIAL FILL UPON PATIENT REQUEST 12/29/2022 Active atorvastatin (LIPITOR) 40 MG tablet Take 1 tablet by mouth 1 (one) time each day 11/11/2022 Active metoprolol tartrate 25 MG tablet Take 25 mg by mouth in the morning and 25 mg in the evening. Active carbidopa-levod opa (SINEMET) 25-100 MG per tablet Take 1 tablet by mouth in the morning and 1 tablet at noon and 1 tablet in the evening and 1 tablet before bedtime. Active Memantine HCl ER 7 MG capsule sustained-relea se 24 hr Take 1 tablet by mouth 1 (one) time each day Active amLODIPine (NORVASC) 5 MG tablet Take 1 tablet (5 mg total) by mouth 1 (one) time each day 90 tablet 3 01/19/2024 Active lisinopril 40 MG tabletIndicatio ns:Hypertension Take 1 tablet (40 mg total) by mouth 1 (one) time each day 90 tablet 3 04/12/2024 5 Active HumuLIN N KWIKPEN 100 UNIT/ML injection 20u in AM 10u in PM 09/19/2024 Active DULoxetine (CYMBALTA) [address] capsule 60 mg 1 (one) time each day 11/08/2024 Active Empagliflozin (Jardiance) 10 MG tabletIndicatio ns:Chronic kidney disease, stage 2 (mild),Hyperten carroll,Proteinuri a, not otherwise specified Take 10 mg by mouth 1 (one) time each day in the morning 30 tablet 5 01/04/2025 Active Cholecalciferol (Vitamin D3) 50 MCG (2000 UT) tabletIndicatio ns:Vitamin D Deficiency Take 2,000 Units by mouth 1 (one) time each day Active Active Problems Problem Noted Date Diagnosed Date Vitamin D deficiency, not otherwise specified Polyuria 11/09/2024 Chronic kidney disease, stage 2 (mild) Bilateral localized swelling of lower legs 06/28 Anemia in chronic kidney disease 06/28/2024 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) 06/17/2023 Acute nontraumatic kidney injury 06/16/2023 Abnormal gait 11/13/2022 Dementia, mild 11/13/2022 Chronic arthritis 10/08/2022 Diabetes mellitus without me ntion of complication, type II or unspecified type, not stated as uncontrolled 06/25/2021 Diabetes mellitus 03/24/2021 Hypertension 03/24/2021 Increased frequency of urination 03/24/2021 Proteinuria 03/24/2021 Long-term current use of insulin 05/05/2018 Overview (12/31/2021): Last Assessment & Plan: Aim??at??blood glucose 90-110 mg % Close follow-up with color worker/PCP/diabetic nurse educator/dietitian??as scheduled to optimize therapy. Sick sinus syndrome 09/02/2017 Overview (01/11/2023): Last Assessment & Plan: Programming device evaluation with iterative adjustment of the implantable device to test the function of the device and select optimal pertinent pertinent values with analysis review and report. Pacemaker is functioning properly. We will set him up for 3-month remote followed by an office check in 6 months. Resolved Problems Problem Noted Date Diagnosed Date Resolved Date Atrial fibrillation 06/25/2021 04/03/20 22 Other and unspecified hyperlipidemia 06/25/2021 04/03/2022 Anxiety state 06/25/2021 04/03/2022 H/O: respiratory disease 05/29/202112/2021 Hyperlipidemia 03/24/2021 04/03/2022 Obstructive sleep apnea syndrome 03/24/2021 04/03/2022 Uncontrolled type 2 diabetes mellitus 03/24/2021 04/03/2022 Overview (08/01/2024): Replacing diagnoses that were inactivated after the 08/01/24 Regulatory Import Drug therapy finding 05/05/2018 022 Overview (12/31/2021): Last Assessment & Plan: Take exactly as prescribed. ?? Proper hydration. Keep serum uric acid??<6 mg %. Monitor for unusual skin rash, bruising, discoloration, weakness, abdominal pain etc. Maintenance procedure for ca rdiac pacemaker system <Pacemaker pulse generator> 01/25/201204/03 Encounters Date Type Department Care Team Description 01/04/2025 10:45 AM EST Office Visit [facility] [phone] Cintia Spencer ARNP Chronic kidney disease, stage 2 (mild) (Primary Dx); Hypertension; Proteinuria, not otherwise specified; Vitamin D deficiency, not otherwise specified 12/11/2024 Office Communication [facility] [address] [address] Acacia Marroquin 11/09/2024 10:15 AM EST Office Visit [facility] [address] [address] Cintia Spencer ARNP Chronic kidney disease, stage 2 (mild) (Primary Dx); Hypertension; Proteinuria, not otherwise specified; Anemia in chronic kidney disease; Bilateral localized swelling of lower legs; Polyuria 11/09/2024 Documentation Only [facility] [address] [place] [address] Ela Arriola MA from Last 3 Months Immunizations Name Administration Dates Next Due Influenza Split High Dose Pr eservative Free IM 07/23/2020,07/14/2019,07/12/2018,08/25,08/18/2016,08/01/2015 Influenza, Unspecified 07/26/2022 PPD Test 03/02/2011 Pfizer SARS-COV-2 01/23/2021,12/21/2020 Pneumococcal Conjugate 13-Valent 07/12/2015,07/0 11/2014 Pneumococcal Polysaccharide 08/06/2014, 6 Td 06/01/2005 Tdap 11/08/2012 Zoster 12/25/2019,08/10/2019,12/01/2011 Social History Tobacco Use Types Packs/Day Years Used Date Smoking Tobacco: Former Cigarettes Q uit: 11/01/1970 Smokeless Tobacco: Never Tobacco Cessation:Counseling Given: Not Answered Alcohol Use Standard Drinks/Week Comments Yes 0 (1 standard drink = 0.6 oz pure alcohol) Alcoholic Drinks/day: Occasional social drink Sex and Gender Information Value Date Recorded Sex Assigned at Not on file Legal Sex Male 5:23 PM EST Gender Identity Not on file Sexual Orientation Not on file Last Filed Vital Signs Vital Sign Reading Time Taken Comments Blood Pressure 132/58 01/04/2025 11:07 AM EST marga nual Pulse 77 01/04/2025 10:59 AM EST Temperature - - Respiratory Rate - - Oxygen Saturation 98% 01/04/2025 10:59 AM EST Inhaled Oxygen Concentration - - Weight 92.5 kg (204 lb) 01/04/2025 10:59 AM EST Height 172.7 cm (5' 8 ) 03/25/2021 1:33 PM EDT Body Mass Index 31.02 03/25/2021 1:33 PM EDT Plan of Treatment Upcoming Encounters Date Type Department Care Team (Late st Contact Info) Description 01/30/2025 Orders Only [facility]. [address] [phone] Cintia Spencer ARNP [address] [address] Chronic kidney disease, stage 2 (mild); Hypertension; Proteinuria, not otherwise specified 07/09/2025 10:15 AM EDT Office Visit [facility] [address] [phone] Cintia Spencer ARNP [address] [address] Health Maintenance Due Date Last Done Comments Diabetes: Ophthalmology Exam 12/01/2020 Diabetes: Pedal Pulse Checked 12/01/2020 Diabetes: Sensory Foot Exam 12/01/2020 Diabetes: Visual Foot Exam 12/01/2020 Diabetes: Hemoglobin A1C 03/09/2024 12/10/2023, 12/31 Pneumococcal Vaccine: 65+ Years Completed 07/12/2015, 05/01/2015, 08/06/2014, Additional history exists Influenza Vaccine Completed 07/10/2024, , 07/23/2020, Additional history exists Hepatitis B Vaccine Aged Out No longe r eligible based on patient's age to complete this topic Procedures Procedure Name Priority Date/Time Associated Diagnosis Comments US RENAL COMPLETE Routine 12/06/2024 3:0 7 PM EST Chronic kidney disease, stage 2 (mild) Hypertension from Last 3 Months Results * Ultrasound renal complete (12/06/2024 3:07 PM EST) Anatomical Region Laterality Modality Body Ultrasound us Cintia RENO IMG US PROCEDURES Final Res ult from Last 3 Months Insurance Care Teams Car Worker Helper Relationship Specialty Start Date End Date Malachi Victor MD [address] [place] [address] PCP - General 11/11/20
--- OUTSIDE RECORDS SUMMARY | 2025-01-24 18:03 | XMS_ITS | Encounter Summary ---
Author Organization [facility], Address [address] [place] [address] Phone Care Team Providers Care Horse Show Manager Name Role Phone Malachi Victor MD Primary Care Provider [phone] Encounter Details Date Type Department Care Team (Late st Contact Info) Description 11/09/2024 Documentation Only [facility], [address] [place] [address] [place], [place] [address] [place] [address] Social History Tobacco Use Types Packs/Day Years Used Date Smoking Tobacco: Former Cigarettes Q uit: 11/01/1970 Smokeless Tobacco: Never Alcohol Use Standard Drinks/Week Comments Yes 0 (1 standard drink = 0.6 oz pure alcohol) Alcoholic Drinks/day: Occasional social drink Sex and Gender Information Value Date Recorded Sex Assigned at Not on file Legal Sex Male 5:23 PM EST Gender Identity Not on file Sexual Orientation Not on file documented as of this encounter Plan of Treatment Upcoming Encounters Date Type Department Care Team (Late st Contact Info) Description 01/30/2025 Orders Only [facility] [address] [phone] Cintia Spencer ARNP [address] [phone] Chronic kidney disease, stage 2 (mild); Hypertension; Proteinuria, not otherwise specified 07/09/2025 10:15 AM EDT Office Visit [facility] [address] [address] Cintia Spencer ARNP [address] [address] documented as of this encounter Visit Diagnoses Not on filedocumented in this encounter Care Teams Horse Show Manager Relationship Specialty Start Date End Date Malachi Victor MD [address] [place] [id number] PCP - General 11/11/20 documented as of this encounter
--- OUTSIDE RECORDS SUMMARY | 2025-01-24 18:03 | XMS_ITS | Encounter Summary ---
Author Organization [facility] Address [address] [facility] [address] [place] [address] Phone Care Team Providers Care Human Development Professor Name Role Phone Malachi Victor MD Primary Care Provider [phone] Encounter Details Date Type Department Care Team (Late st Contact Info) Description 04/02/2021 Orders Only [facility] [address] [facility] [address] [place] [address] Provider, MD Matt [address] [place] [id number] Social History Tobacco Use Types Packs/Day Years Used Date Smoking Tobacco: Former Cigarettes Q uit: 11/01/1970 Alcohol Use Standard Drinks/Week Comments Yes 0 [...] Only [facility] [address] [facility] [address] [place] [address] Cintia Spencer ARNP [address] [facility] [address] [place] [address] Chronic kidney disease, stage 2 (mild); Hypertension; Proteinuria, not otherwise specified 07/09/2025 10:15 AM EDT Office Visit [facility] [address] [facility] [address] [place] [address] Tj CintiaROWDY [address] [address] documented as of this encounter Procedures Procedure Name Priority Date/Time Associated Diagnosis Comments EXT RESULT ENTRY Routine 03/06/2021 documented in this encounter Results * EXT RESULT ENTRY (03/06/2021) us Historical Provider LAB BLOOD ORDERABLES Apolonia l Result documented in this encounter Visit Diagnoses Not on filedocumented in this encounter Care Teams Human Development Professor Relationship Specialty Start Date End Date Malachi Victor MD [address] [place] [address] PCP - General 11/11/20 documented as of this encounter
--- OUTSIDE RECORDS SUMMARY | 2025-01-24 18:03 | XMS_ITS | Encounter Summary ---
Author Organization [facility] Address [address] [address] Phone Care Team Providers Care Bellows Assembler Name Role Phone Malachi Victor MD Primary Care Provider [phone] Reason for Visit * Reason Comments Chronic Kidney Disease Proteinuria Encounter Details Date Type Department Care Team (Late st Contact Info) Description 01/04/2025 10:45 AM EST Office Visit [facility] [address] [address] Cintia Spencer ARNP [address] [address] Chronic kidney disease, stage 2 (mild) (Primary Dx); Hypertension; Proteinuria, not otherwise specified; Vitamin D deficiency, not otherwise specified Social History Tobacco Use Types Packs/Day Years [...] on file documented as of this encounter Last Filed Vital Signs Vital Sign Reading Time Taken Comments Blood Pressure 132/58 01/04/2025 11:07 AM EST ma nual Pulse 77 01/04/2025 10:59 AM EST Temperature - - Respiratory Rate - - Oxygen Saturation 98% 01/04/2025 10:59 AM EST Inhaled Oxygen Concentration - - Weight 92.5 kg (204 lb) 01/04/2025 10:59 AM EST Height - - Body Mass Index 31.02 03/25/2021 1:33 PM EDT documented in this encounter Progress Notes * Cintia Spencer ARNP - 01/04/2025 10:45 AM EST Images from the original note were not included. Patient Name: Klever Callaway, Male Date of : 1945, 79 y.o. Date: 01/04/2025 Orders Placed This Encounter Basic metabolic panel CBC Urine Protein / creatinine ratio Urine Albumin / Creatinine Ratio Ferritin Iron Panel (Fe, TIBC, TSAT) Renal function panel Vitamin D 25 hydroxy Empagliflozin (Jardiance) 10 MG tablet History of Present Illness Klever Callaway is a 79 y.o. male here in follow-up for HTN and proteinuria. He has type 2 DM. H/o newly diagnosed Parkinson's and Dementia, continues to take Sinemet. Has MGUS and there was a concernfor myeloma, kidney biopsy showed only 5% plasma cells - so MGUS. He continues to have bilateral leg weakness, uses walker. DM poorly controlled, sees Endocrine. Presents today in follow-up for persistent polyuria and urinary frequency - Urology cleared d/t no finding; pt states going on for years TURP hx - prostate not a current issue. Urinalysis Neg for infection Home blood sugars run high in the 200s mostly. Could improve on diet On Regular insulin only for DM treatment currently. The following portions of the patient's chart were reviewed in this encounter and updated as appropriate: Allergies Meds Problems Med Hx Surg Hx Fam Hx Review of Systems Constitutional: Negative for chills, fever, weight gain and weight loss. HENT: Negative for congestion and nosebleeds. Eyes: Negative for blurred vision, double vision and impaired. Denies retinopathy Respiratory: Positive for shortness of breath. Negative for cough. Intermittent - sees Cards for A fib - has pacemaker Cardiovascular: Positive for leg swelling. Negative for chest pain and palpitations. Gastrointestinal: Negative for abdominal pain, diarrhea, nausea, vomiting and poor appetite. Genitourinary: Positive for frequency and nocturia. Negative for dysuria, flank pain, hematuria, urgency, urinary incontinence and urinary hesitancy. Polyuria Musculoskeletal: Uses walker for ambulation Skin: Negative for rash. Neurological: Negative for dizziness, tingling, numbness and headaches. Endo/Heme/Allergies: Does not bruise/bleed easily. Psychiatric/Behavioral: Negative. Medication List Current Outpatient Medications Medication Sig Dispense Refill allopurinol (ZYLOPRIM) 300 MG tablet Take 150 mg by mouth 1 (one) time each day amLODIPine (NORVASC) 5 MG tablet Take 1 tablet (5 mg total) by mouth 1 (one) time each day 90 tablet 3 atorvastatin (LIPITOR) 40 MG tablet Take 1 tablet by mouth 1 (one) time each day buPROPion XL (WELLBUTRIN XL) 300 MG 24 hr tablet Take 300 mg by mouth every morning carbidopa-levodopa (SINEMET) 25-100 MG per tablet Take 1 tablet by mouth in the morning and 1 tablet at noon and 1 tablet in the evening and 1 tablet before bedtime. Cholecalciferol (Vitamin D3) 50 MCG (2000 UT) tablet Take 2,000 Units by mouth 1 (one) time each day colchicine 0.6 MG tablet Take 1 tablet by mouth 1 (one) time each day DULoxetine (CYMBALTA) [address] capsule 60 mg 1 (one) time each day HumuLIN N KWIKPEN 100 UNIT/ML injection 20u in AM 10u in PM lisinopril 40 MG tablet Take 1 tablet (40 mg total) by mouth 1 (one) time each day 90 tablet 3 Memantine HCl ER 7 MG capsule sustained-release 24 hr Take 1 tablet by mouth 1 (one) time each day metoprolol tartrate 25 MG tablet Take 25 mg by mouth in the morning and 25 mg in the evening. oxyCODONE-acetaminophen (PERCOCET) 5-325 MG per tablet 1 TAB BY MOUTH UP TO THREE TIMES A DAY NEEDED FOR SEVERE PAIN. PARTIAL FILL UPON PATIENT REQUEST warfarin (COUMADIN) 2.5 MG tablet warfarin (COUMADIN) 5 MG tablet Empagliflozin (Jardiance) 10 MG tablet Take 10 mg by mouth 1 (one) time each day in the morning 30 tablet 5 No current facility-administered medications for this visit. Allergy List Allergies Allergen Reactions Chlorthalidone Other (see comments) Severe hyponatremia Finasteride dizziness Hydrochlorothiazide Physical Exam BP 132/58 Comment: manual Pulse 77 Wt 204 lb (92.5 kg) SpO2 98% BMI 31.02 kg/m?? Vitals reviewed. Constitutional: He is oriented to person, place, and time. He does not appear ill. No distress. HEENT: Mouth/Throat: Oropharynx is clear and moist. Eyes: Conjunctivae are normal. Neck: No JVD present. Cardiovascular: Normal rate and regular rhythm. 1+ pitting bilateral lower extremety edema, mid peterson to ankles He exhibits edema. Pulmonary/Chest: Effort normal and breath sounds normal. Abdominal: Soft. He exhibits no distension. There is no abdominal tenderness. Neurological: He is alert and oriented to person, place, and time. Skin: Skin is warm and dry. Psychiatric: He has a normal mood and affect. His behavior is normal. Judgment normal. Labs Chemistry Lab Units 11/16/24 0948 09/08/24 1017 09/08/24 0000 08/20/24 0729 08/19/24 0529 08/18/24 0537 08/17/24 0613 08/11/24 1428 08/04/24 1052 07/13/24201606/27/24 0000 06/26/24 1136 02/01/24 1353 11/04/23 0928 07/31/23 1430 07/02/23 1600 07/02/23 1600 CREATININE mg/dL 0.90 1.00 1.00 0.90 0.90 1.10 0.90 < > 1.00 < > 1.26 1.26 1.30 1.00 < > -- 1.2 BUN mg/dL 29* 26* 26* 35* 42* 46* 37* < > 29* < > 29* 29* 35* 20* < > -- 38* POTASSIUM mmol/L 4.5 5.0 5.0 4.1 4.1 4.1 3.8 < > 4.0 < > 4.4 4.4 4.8 4.3 < > -- 4.4 SODIUM mmol/L 139 138 138 140 141 140 138 < > 140 < > 143 143 138 141 < > -- 141 CO2 mmol/L 29 28 28 30 27 28 25 < > 26 < > 26 26 30 29 < > -- 26 CHLORIDE mmol/L 104 100 -- 102 104 102 101 < > 103 < > -- 104 101 104 < > -- 106 ALBUMIN g/dL 3.6* 3.2* -- -- -- -- -- -- 3.5* -- -- 4.0 3.9 3.9 < > -- 3.9 EGFRNAFR -- -- 76 -- -- -- -- -- -- -- 57 -- -- -- -- -- 64 EGFR mL/min/1.73m2 86 76 -- 86 86 67 86 < > 76 < > -- 57* 55* 76 < > -- -- WBC AUTO K/uL 7.49 6.77 6.77 -- 15.07* 14.60* 14.63* < > 7.42 < > -- 8.6 -- -- -- -- 9.1 HEMATOCRIT % 37.4* 38.5* 38.5* -- 27.4* 26.8* 26.1* < > 38.0* < > 36.7* 36.7* -- -- -- -- 35.0* HEMOGLOBIN g/dL 11.7* 12.0* 12.0* -- 9.3* 9.3* 9.2* < > 12.0* < > 11.8* 11.8* -- -- -- < > 11.4* PLATELETS AUTO K/uL 175 221 221 -- 232 242 249 < > 160 < > 152 152 -- -- -- -- 180 < > = values in this interval not displayed. Bone Mineral Lab Units 11/16/24 0948 09/08/24 1017 09/08/24 0000 08/20/24 0729 08/19/24 0529 08/18/24 0537 08/14/24 1328 08/13/24 0557 08/11/24 1428 08/04/24 1052 08/01/24 1507 07/13/24 2017 06/27/24 0000 06/26/24 1136 02/01/24 1353 11/04/23 0928 09/14/23 0922 07/31/23 1430 07/02/23 1600 CALCIUM mg/dL 9.6 9.1 9.1 8.8 8.6 8.8 < > 8.2* < > 8.9 < > 9.4 < > 9.1 9.5 9.5 9.2 < > 9.5 PHOSPHORUS mg/dL 3.4 -- -- -- -- -- -- 3.2 -- -- -- 2.7 -- 3.2 -- -- -- -- 3.3 ALK PHOS U/L 114 153* -- -- -- -- -- -- -- 102 -- -- -- -- 111 115 113 -- -- VIT D 25 HYDROXY ng/mL -- -- -- -- -- -- -- -- -- -- -- -- -- 42.9 -- -- -- -- -- < > = values in this interval not displayed. 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: Stable Creatinine 0.9, GFR 86 Normal Lytes On Lisinopril Start Jardiance 10 mg QD Check BMP in 2-4 weeks Optimize DM control Maintain good BP Avoid Nephrotoxins Hypertension: Blood pressure well controlled c/w Metoprolol 25 mg BID, Amlodipine 5 mg QD, Lisinopril 40 mg QD and Furosemide 40 mg QD BLE Edema present No medication changes made today Target BP <130/80 Follow low NA diet Avoid NSAIDs/Decongestant medications Proteinuria: Urine microalb/creat ratio elevated at 840 On ACEI Optimize DM and HTN control Start Jardiance 10 mg QD Check BMP in 2-4 weeks Bilateral LE Edema: Stable on Furosemide 40 mg QD Continue the same Follow low NA diet Continue to monitor Creat and Lytes 5. Anemia in CKD: Hgb within target at 11.7 Keep Hgb 10-12 Iron studies have been WNL Not on iron supplement 6. Polyuria: Cleared by Urology - no findings R/t uncontrolled DM w/ HgbA1c elevated at 10.2 as of 11/16/24 - Target < 7% Following up with Endocrine for DM management Renal US, 12/01/24 showed normal kidneys with a single simple cyst on each side. Return visit in 6 months for follow-up. ROWDY Crooks Cosigned by Joe Torres MD at 01/05/2025 8:47 AM EST documented in this encounter Plan of Treatment Upcoming Encounters Date Type Department Care Team (Late st Contact Info) Description 01/30/2025 Orders Only [facility] [address] [id number] Cintia Spencer ARNP [address] [phone] Chronic kidney disease, stage 2 (mild); Hypertension; Proteinuria, not otherwise specified 07/09/2025 10:15 AM EDT Office Visit [facility] [address] [phone] Cintia Spencer ARNP [address] [address] Scheduled Orders Name Type Priority Associated Diagnoses Orde r Schedule Basic metabolic panel Lab Routine Chronic kidney disease, stage 2 (mild) Hypertension Proteinuria, not otherwise specified Expected: 01/30/2025, Expires: 02/28/2025 CBC Lab Routine Chronic kidney disease, stage 2 (mild) Hypertension Proteinuria, not otherwise specified Vitamin D deficiency, not otherwise specified Expected: 06/01/2025, Expires: 07/31/2025 Urine Protein / creatinine ratio Lab Routine Chronic kidney disease, stage 2 (mild) Hypertension Proteinuria, not otherwise specified Vitamin D deficiency, not otherwise specified Expected: 06/01/2025, Expires: 07/31/2025 Urine Albumin / Creatinine Ratio Lab Routine Chronic kidney disease, stage 2 (mild) Hypertension Proteinuria, not otherwise specified Vitamin D deficiency, not otherwise specified Expected: 06/01/2025, Expires: 07/31/2025 Ferritin Lab Routine Chronic kidney disease, stage 2 (mild) Hypertension Proteinuria, not otherwise specified Vitamin D deficiency, not otherwise specified Expected: 06/01/2025, Expires: 07/31/2025 Iron Panel (Fe, TIBC, TSAT) Lab Routine Chronic kidney disease, stage 2 (mild) Hypertension Proteinuria, not otherwise specified Vitamin D deficiency, not otherwise specified Expected: 06/01/2025, Expires: 07/31/2025 Renal function panel Lab Routine Chronic kidney disease, stage 2 (mild) Hypertension Proteinuria, not otherwise specified Vitamin D deficiency, not otherwise specified Expected: 06/01/2025, Expires: 07/31/2025 Vitamin D 25 hydroxy Lab Routine Chronic kidney disease, stage 2 (mild) Hypertension Proteinuria, not otherwise specified Vitamin D deficiency, not otherwise specified Expected: 06/01/2025, Expires: 07/31/2025 documented as of this encounter Visit Diagnoses Diagnosis Chronic kidney disease, stage 2 (mild)- Primary Hypertension Proteinuria, not otherwise specified Vitamin D deficiency, not otherwise specified Chronic kidney disease, stage 2 (mild) Hypertension Proteinuria, not otherwise specified documented in this encounter Care Teams Bellows Assembler Relationship Specialty Start Date End Date Malachi Victor MD [address] [place] [id number] PCP - General 11/11/20 documented as of this encounter
--- OUTSIDE RECORDS SUMMARY | 2025-01-24 18:03 | XMS_ITS | Patient Health Record ---
Author Organization [facility] Address [address] [place] [address] Care Team Providers Care Financial Management Name Role Phone Malachi Victor MD Primary Care Provider Yves Zimmerman Jr Unavailable [phone] Allergies Allergen (clinical drug ingredient) Drug/Non Drug Allergy documented on EMR Reaction Allergy Type Onset Date Status Chlorothiazide Unknown Drug Allergy Ac tive Reason For Referral No Information Medications Medication SIG (Take, Route, Frequency, Duration) Notes Start Date End Date Status Lisinopril 40mg Acti ve Pravastatin Sodium 40mg Active Citalopram & Diet Manage Prod 20mg Active MiraLax (colon prep) 17 GM/SCOOP mixed with Gatorade or Crystal Light Orally begin at 5:00 p.m. the day before the procedure for 1 day 03/25/2023 Active NIFEdipine 30mg Acti ve Coumadin Active oxyBUTYnin 5mg Activ e Allopurinol Active Metoprolol Tartrate Active metFORMIN HCl Active Ozempic Active Furosemide 20mg Not- Taking Warfarin Sodium Acti ve Social History Alcohol Screen Question Answer Notes Did you have a drink contain ing alcohol in the past year? Yes How often did you have a dri nk containing alcohol in the past year? 2 to 4 times a month (2 points) How many drinks did you have on a typical day when you were drinking in the past year? 1 or 2 drinks (0 point) How often did you have 6 or more drinks on one occasion in the past year? Never (0 point) Points 2 Interpretation Negative Problems Problem Type SNOMED Code ICD Code Onset Dates Problem Status W/U Status Risk Notes Problem 215110200 Abnormal CT scan, colon (R93.3) Active confirmed Problem 24411005 Heme positive stool (R19.5) Active confirmed Plan Of Treatment Future Test Test Name Order Date COLONOSCOPY 11/03/2013 COLONOSCOPY 03/25/2023 Insurance Providers Payer Name Payer Address Payer Phone Subscriber Number Group Number Insured Name Patient Relationship to Insured Coverage Start Date Coverage End Date [facility] [address] [facility] [place] [phone] [id number] TOBY MULLEN Self - patient is the insured Medical (General) History Medical History History ICD Code atrial fibrillation hypertension diabetes mellitus depression elevated cholesterol pacemaker placement arthritis benign prostatic hypertrophy Parkinson's disease Colonoscopy 02/14/14, diverticulosis and right colon AVMs, ten-year followup Surgical History Surgery Date(Month/Year) left knee replacement right knee replacement hernia repair pacemaker
--- OUTSIDE RECORDS SUMMARY | 2025-01-24 18:03 | XMS_ITS | Clinical Summary ---
Author Organization [facility] Address [address] [place] [address] Care Team Providers Care Fashion Consultant Selling Name Role Phone Unavailable Primary Care Provider Unavailabl e Social History Tobacco Use Types Packs/Day Years Used Date Smoking Tobacco: Never Assessed Sex and Gender Information Value Date Recorded Sex Assigned at Not on file Legal Sex Male 7:10 AM EST Gender Identity Not on file Sexual Orientation Not on file Plan of Treatment Health Maintenance Due Date Last Done Comments DTaP,Tdap,and Td Vaccines (1 - Tdap) 1962 Pneumococcal Vaccine: 50+ Ye ars (1 of 1 - PCV) 1993 Zoster Vaccines (1 of 2) 1993 RSV Immunization Patients 60 + Years Old (1 - 1-dose 75+ series) 2018 Cholesterol Screening (Lipid Panel) 10/04/2022 Depression Screening 10/04/2022 Falls Risk Assessment 10/04/2022 Social Influencers of Health Screening 10/04/2022 COVID-19 Vaccine ( - 2023-2 5 season) 2024 Influenza Vaccine (#1) 2024 HIB Vaccines Aged Out No longer eligi ble based on patient's age to complete this topic HPV Vaccines Aged Out No longer eligi ble based on patient's age to complete this topic Hepatitis A Vaccines Aged Out No long er eligible based on patient's age to complete this topic Hepatitis B Vaccines Aged Out No long er eligible based on patient's age to complete this topic IPV Vaccines Aged Out No longer eligi ble based on patient's age to complete this topic MMR Vaccines Aged Out No longer eligi ble based on patient's age to complete this topic Meningococcal ACWY Vaccine Aged Out N o longer eligible based on patient's age to complete this topic Meningococcal B Vacine Aged Out No lo nger eligible based on patient's age to complete this topic RSV Immunization Patients Un ellie 20 months Aged Out No longer eligible b ased on patient's age to complete this topic Varicella Vaccines Aged Out No longer eligible based on patient's age to complete this topic
== END 2025-01-24 15:39 | disposition home or self-care (01) ==
LOC: HO.HSMS 15:01
PROVIDERS: PCP Internal Medicine; Visit Provider Psychiatry & Neurology Neurology
DX: G20.A1 Parkinson's disease without dyskinesia, without mention of fluctuations (principal); F03.A0 Unspecified dementia, mild, without behavioral disturbance, psychotic disturbance, mood disturbance, and anxiety; G47.33 Obstructive sleep apnea (adult) (pediatric)
CPT/HCPCS: 99214; G2211

== ENCOUNTER → 2025-01-24 15:01 | Outpatient (BNVA) | payer MEDICARE, SELFPAY | PROVIDERS: PCP Internal Medicine; Visit Provider Psychiatry & Neurology Neurology | DX: F03.A0 Unspecified dementia, mild, without behavioral disturbance, psychotic disturbance, mood disturbance, and anxiety (principal); G47.33 Obstructive sleep apnea (adult) (pediatric) | CPT/HCPCS: 99212 ==

== ENCOUNTER 2025-08-01 10:04 | Outpatient (AMB) | payer MEDICARE, SELFPAY ==
[2025-08-01 10:06] VITALS: BP 138/80; PULSE 69; O2SAT 96; BMI 33.0
--- NOTE | 2025-08-01 10:06 | MHC.OFFVIS ---
Vital Signs 08/01/25 10:06 Height 5 ft 9 in Weight 223 lb 4 oz BMI 33.0 BP 138/80 Blood Pressure Location Rt brachial Position Sitting Pulse 69 Pulse Source Pulse Oximeter Pulse Oximetry (%) 96 Oxygen Delivery Method Room Air Intake Visit Reasons: 6 mo follow up Intake Note: Follow up Parkinson's disease without dyskinesia, without mention of fluctuations, Dementia and ARCELIA last used CPAP 2022 per [facility] Required: No Accompanied by: Spouse Allergies hydrochlorothiazide Allergy (Severe, Verified 08/01/25 10:10) syncope falls chlorothiazide (CHLOROTHIAZIDE) Allergy (Unknown, Verified 08/01/25 10:10) PASSES OUT chlorthalidone Allergy (Unknown, Verified 08/01/25 10:10) UNKNOWN HPI Comments Details: 80y/o right handed male comes for follow up of parkinsons disease and dementia, ARCELIA .He is on sinemet 25/100 qid . He misses the 4th dose often . No hallucinations He is using his CPAP regularly now since he changed mask He sleeps for 2 hrs after breakfast and stays good the rest of the day. - He has occasional vivid dreaming . Cognition is stable - he is on memantine 14 mg could not tolerate higher dose. The tremors are intermittent and worse. he is slower now. gait is slower . No falls. Needs help with ADLS sometimes. he makes his own breakfast and bass ssome chores. History from initial visit-He started noticing right hand tremors about 3 years ago and now has tremors in both hands. It can be at rest and with action. He also noticed difficulty with fine motor coordination. He is also having some freezing episodes.No memory issues. He had a neuropsych eval c/w mild dementia .His voice is softer. He has depression and anxiety . He denies drooling. His handwriting is smaller. He has difficulty using a fork . He has some difficulty dressing. No help with taking a shower. He uses a walker , very slow. No recent falls. He used to fall frequently. He also has chronic dizziness - lightheadedness and feels like he is going to pass out. He had traumatic ICH 5 years ago - did not need surgery . His bowel movements are regular. [facility] Medical History Parkinson's disease without dyskinesia, without mention of fluctuations ARCELIA on CPAP Hallucinations Dementia Idiopathic Parkinson's disease Diverticulosis Parkinsons BPH (benign prostatic hyperplasia) Arthritis Pacemaker Hyperlipidemia Depression Diabetes HTN (hypertension) Atrial fibrillation Surgical History H/O shoulder surgery H/O hernia repair History of right knee joint replacement History of left knee replacement H/O colonoscopy Family History Family/Other No problems noted. Social History Alcohol intake: current Alcohol intake frequency: holidays/special occasions only Patient Tobacco Use Status: Former Tobacco user Physical Exam Vital Signs: Last Vital Signs Pulse 69 08/01/25 10:06 BP 138/80 08/01/25 10:06 Pulse Ox 96 08/01/25 10:06 Oxygen Delivery Method Room Air 08/01/25 10:06 BMI result Body Mass Index 33.0 Const General: cooperative, healthy appearing and comfortable Nutritional Appearance: overweight Orientation/consciousness: patient oriented x3 Eyes Pupils: Equal, round and reactive pupils present Neuro Other: Decreased facial expression and blink( mild 0 improved since last visit) Mild asymmetry - right palpebral fissure widened Restricted right shoulder movement Right UE rest tremors Right UE cog wheel rigidity FFM decreased R>L Foot taps severely decreased R>L gait-with walker- shorter stride freezing General: patient oriented x3 and moves all extremities Cranial nerves: Yes Equal, round and reactive pupils present, Yes Bilaterally intact EOM present, Yes Nystagmus not present, Yes Normal facial strength present and Yes Midline tongue present Motor exam (neuro): 5/5 motor strength present throughout Coordination: [id number] test normal Assessment & Plan Assessment & Plan (1) Parkinson's disease without dyskinesia, without mention of fluctuations: Code(s): G20.A1 - Parkinson's disease without dyskinesia, without mention of fluctuations Category: Medical Qualifiers: Fluctuating manifestations: without fluctuating manifestations Qualified Code(s): G20.A1 - Parkinson's disease without dyskinesia, without mention of fluctuations (2) Dementia: Code(s): F03.90 - Unspecified dementia, unspecified severity, without behavioral disturbance, psychotic disturbance, mood disturbance, and anxiety Category: Medical Qualifiers: Dementia type: unspecified type Dementia severity: mild Dementia behavioral or psychological symptom: without behavioral, psychotic, or mood disturbance or anxiety Qualified Code(s): F03.A0 - Unspecified dementia, mild, without behavioral disturbance, psychotic disturbance, mood disturbance, and anxiety (3) ARCELIA on CPAP: Code(s): G47.33 - Obstructive sleep apnea (adult) (pediatric) Category: Medical Plan sinemet 25/100 1 1/2 tabs tid Monitor for increase in hallucinations Continue namenda XR 14 mg qd - did not tolerate 21 mg Restart Melatonin 5mg qhs CPAP compliance stressed Dr. Terry did not think he is a surgical candidate Coding Level of Care Code Est Pt Level 4 (28103) Complex EM visit Add On G2211 Diagnoses Parkinson's disease without dyskinesia or fluctuating manifestations G20.A1 Fluctuating manifestations: without fluctuating manifestations Mild dementia without behavioral disturbance, psychotic disturbance, mood disturbance, or anxiety, unspecified dementia type F03.A0 Dementia type: unspecified type Dementia severity: mild Dementia behavioral or psychological symptom: without behavioral, psychotic, or mood disturbance or anxiety ARCELIA on CPAP G47.33
--- OUTSIDE RECORDS SUMMARY | 2025-08-01 11:17 | XMS_ITS | Encounter Summary ---
Author Organization [facility] Address [address] [place] [address] Phone Care Team Providers Care Hand Rounder Name Role Phone Malachi Victor MD Primary Care Provider [phone] Encounter Details Date Type Department Care Team (Late st Contact Info) Description 04/02/2021 Orders Only [facility] [address] [facility] [address] [place] [address] Provider, MD Matt Social History Tobacco Use Types Packs/Day Years [...] Care Team (Late st Contact Info) Description 01/07/2026 10:45 AM EDT Office Visit [facility] P.[facility] [address] [facility] [address] [place] [address] Cintia Spencer ARNP [address] [facility] [address] [place] [address] documented as of this encounter Procedures Procedure Name Priority Date/Time Associated Diagnosis Comments EXT RESULT ENTRY Routine 03/06/2021 documented in this encounter Results * EXT RESULT ENTRY (03/06/2021) us Historical Provider LAB BLOOD ORDERABLES Apolonia l Result documented in this encounter Visit Diagnoses Not on filedocumented in this encounter Care Teams Hand Rounder Relationship Specialty Start Date End Date Malachi Victor MD [address] [place] [address] PCP - General 11/11/20 documented as of this encounter
--- OUTSIDE RECORDS SUMMARY | 2025-08-01 11:17 | XMS_ITS | Encounter Summary ---
Author Organization [facility] Address [address] [address] Phone Care Team Providers Care Breaker Unit Assembler Name Role Phone Malachi Victor MD Primary Care Provider [phone] Encounter Details Date Type Department Care Team (Late Contact Info) Description 07/16/2025 Office Communication [facility] [address] [facility] [address] [place] [phone] Cintia Spencer ARNP [address] [facility] [facility] [address] [place] [address] Social History Tobacco Use Types Packs/Day Years [...] on file documented as of this encounter Miscellaneous Notes * Telephone Encounter - Zamzam Queen - 07/17/2025 11:56 AM EDT Spoke to pt and message was given below. documented in this encounter Plan of Treatment Upcoming Encounters Date Type Department Care Team (Late st Contact Info) Description 01/07/2026 10:45 AM EDT Office Visit [facility] [address] [phone] Cintia Spencer ARNP [address] [phone] documented as of this encounter Visit Diagnoses Not on filedocumented in this encounter Care Teams Breaker Unit Assembler Relationship Specialty Start Date End Date Malachi Victor MD [address] [place] [id number] PCP - General 11/11/20 documented as of this encounter
--- OUTSIDE RECORDS SUMMARY | 2025-08-01 11:17 | XMS_ITS | Encounter Summary ---
Author Organization [facility], Address [address] [place] [address] Phone Care Team Providers Care Stone Carriage Operator Name Role Phone Malachi Victor MD Primary Care Provider [phone] Encounter Details Date Type Department Care Team (Late st Contact Info) Description 11/09/2024 Documentation Only [facility], [address] [place] [phone] [place], [place] [address] [place] [address] Social History Tobacco Use Types [...] [facility] [address] [phone] Cintia Spencer ARNP [address] [address] documented as of this encounter Visit Diagnoses Not on filedocumented in this encounter Care Teams Stone Carriage Operator Relationship Specialty Start Date End Date Malachi Victor MD [address] [place] [id number] PCP - General 11/11/20 documented as of this encounter
--- OUTSIDE RECORDS SUMMARY | 2025-08-01 11:17 | XMS_ITS | Clinical Summary ---
Author Organization [facility] Address [address] [place] [address] Care Team Providers Care Motor Hotel Manager Name Role Phone Unavailable Primary Care Provider [...] Vaccines (1 of 2) 1993 RSV Immunization Adult Patie nts (1 - 1-dose 75+ series) 2018 Depression Screening 11/01/2024 COVID-19 Vaccine ( - 2023-2 5 season) 2025 Influenza Vaccine (#1) 2025 HIB Vaccines Aged Out No longer eligi [...] age to complete this topic Meningococcal B Vaccine Aged Out No l onger eligible based on patient's age to complete this topic RSV Immunization Patients Un ellie 20 months Aged Out No longer eligible b ased on patient's age to complete this topic Varicella Vaccines Aged Out No longer eligible based on patient's age to complete this topic
--- OUTSIDE RECORDS SUMMARY | 2025-08-01 11:17 | XMS_ITS | Patient Health Record ---
Author Organization [facility] Address [address] [place] [address] Care Team Providers Care Milk Pickup Driver Name Role Phone Malachi Victor MD Primary Care Provider Yves Zimmerman Jr Unavailable [phone] Allergies Allergen (clinical drug ingredient) Drug/Non Drug [...] Problem Status W/U Status Risk Notes Problem [id number] Abnormal CT scan, colon (R93.3) Active confirmed Problem [id number] Heme positive stool (R19.5) Active confirmed Plan Of Treatment Future Test Test Name Order Date COLONOSCOPY 11/03/2013 COLONOSCOPY 03/25/2023 Insurance Providers Payer Name Payer Address Payer Phone Subscriber Number Group Number Insured Name Patient Relationship to Insured Coverage Start Date Coverage End Date [facility] [address] [facility] [place] [phone] [id number] TOBY MULLEN Self - patient is the insured Medical (General) History Medical History History ICD Code atrial fibrillation hypertension diabetes mellitus depression elevated cholesterol pacemaker placement arthritis benign prostatic hypertrophy Parkinson's disease Colonoscopy 02/14/14, diverticulosis and right colon AVMs, ten-year followup Surgical History Surgery Date(Month/Year) left knee replacement right knee replacement hernia repair pacemaker
--- OUTSIDE RECORDS SUMMARY | 2025-08-01 11:17 | XMS_ITS | Clinical Summary ---
Author Organization [facility] Address [address] [place] [phone] Phone Care Team Providers Care Adobe Developer Name Role Phone Malachi Victor MD Primary Care Provider Allergies Active Allergy Reactions Criticality Noted Date [...] time each day 90 tablet 3 04/12/2024 Active HumuLIN N KWIKPEN 100 UNIT/ML injection 20u in AM 10u in PM 09/19/2024 Active DULoxetine (CYMBALTA) [address] capsule 60 mg 1 (one) time each day 11/08/2024 Active Cholecalciferol (Vitamin D3) 50 MCG (1999) tabletIndicatio ns:Vitamin D Deficiency Take 2,000 Units by mouth 1 (one) time each day Active Empagliflozin (Jardiance) 10 MG tabletIndicatio ns:Chronic kidney disease, stage 2 (mild),Proteinu albert, not otherwise specified,Type 2 diabetes mellitus with diabetic chronic kidney disease (HCC) Take 10 mg by mouth 1 (one) time each day in the morning 30 tablet 11 07/09/2025 07/09/20 26 Active Empagliflozin (Jardiance) 10 MG tabletIndicatio ns:Chronic kidney disease, stage 2 (mild),Hyperten carroll,Proteinuri a, not otherwise specified Take 10 mg by mouth 1 (one) time each day in the morning 30 tablet 5 01/04/2025 07/03/20 25 Active Problems Problem Noted Date Diagnosed Date [...] 05/05/2018 Overview (12/31/2021): Last Assessment & Plan: Aim at blood glucose 90-110 mg % Close follow-up with associate director qa/PCP/diabetic nurse educator/dietitian as scheduled to optimize therapy. Sick sinus syndrome [...] Date Resolved Date Atrial fibrillation 06/25/2021 04/03/20 Other and unspecified hyperlipidemia 06/25/2021 04/03/2022 Anxiety state 06/25/2021 04/03/2022 H/O: respiratory disease 05/29/202112/2021 Hyperlipidemia 03/24/2021 04/03/2022 Obstructive sleep apnea syndrome 03/24/2021 04/03/2022 Uncontrolled type 2 diabetes mellitus 03/24/2021 04/03/2022 Overview (08/01/2024): Replacing diagnoses that were inactivated after the 08/01/24 Regulatory Import Drug therapy finding 05/05/2018 022 Overview (12/31/2021): Last Assessment & Plan: Take exactly as prescribed. Proper hydration. Keep serum uric acid <6 mg %. Monitor for unusual skin rash, bruising, discoloration, weakness, abdominal pain etc. Maintenance procedure for [facility] pacemaker system <Pacemaker pulse generator> 01/25/201204/03 Encounters Date Type Department Care Team Description 07/16/2025 Office Communication [facility] [address] [phone] Cintia Spencer ARNP 07/16/2025 Orders Only [facility] [address] [phone] Cintia Spencer ARNP Chronic kidney disease, stage 2 (mild) (Primary Dx); Hypertension; Hyperkalemia 07/09/2025 10:15 AM EDT Office Visit [facility] [address] [phone] Cintia Spencer ARNP Chronic kidney disease, stage 2 (mild) (Primary Dx); Hypertension; Proteinuria, not otherwise specified; Vitamin D deficiency, not otherwise specified; Anemia in chronic kidney disease; Bilateral localized swelling of lower legs; Type 2 diabetes mellitus with diabetic chronic kidney disease (HCC) 06/01/2025 Orders Only [facility] [address] [phone] Cintia Spencer ARNP Chronic kidney disease, stage 2 (mild); Hypertension; Proteinuria, not otherwise specified; Vitamin D deficiency, not otherwise specified from Last 3 Months Immunizations Immunization Administration Dates Next Due Influenza Split High Dose Pr eservative Free IM 07/23/2020,07/14/2019,07/12/2018,08/25,08/18/2016,08/01/2015 Influenza, Unspecified 07/26/2022 PPD Test 03/02/2011 Pfizer SARS-COV-2 01/23/2021,12/21/2020 Pneumococcal Conjugate 13-Valent 07/12/2015,070 11/2014 Pneumococcal Polysaccharide 08/06/2014, 6 Td 06/01/2005 [...] Sign Reading Time Taken Comments Blood Pressure 118/86 07/09/2025 10:57 AM EDT Pulse 50 07/09/2025 10:29 AM EDT Temperature - - Respiratory Rate - - Oxygen Saturation 100% 07/09/2025 10:29 AM EDT Inhaled Oxygen Concentration - - Weight 102 kg (224 lb) 07/09/2025 10:29 AM EDT Height 172.7 cm (5' 8 ) 03/25/2021 1:33 PM EDT Body Mass Index 34.06 03/25/2021 1:33 PM EDT Plan of Treatment Upcoming Encounters Date Type Department Care Team (Late st Contact Info) Description 01/07/2026 10:45 AM EDT Office Visit [facility] [address] [phone] Cintia Spencer ARNP [address] [phone] Health Maintenance Due Date Last Done Comments Diabetes: Ophthalmology Exam 12/01/2020 Diabetes: Pedal Pulse Checked 12/01/2020 Diabetes: Sensory Foot Exam 12/01/2020 Diabetes: Visual Foot Exam 12/01/2020 Diabetes: Hemoglobin A1C 03/09/2024 12/10/2023, 12/31 Influenza Vaccine (#1) 2025 , 07/26/2022, 07/23/2020, Additional history exists Pneumococcal Vaccine: 50+ Years Completed 07/12/2015, 05/01/2015, 08/06/2014, Additional history exists Pneumococcal Vaccine: Peds (0 to 5 Years) and At-Risk Patients (6 to 49 Years) Discontinued 07/12/2015, 05/01/2015, 08/06/2014, Additional history exists Hepatitis B Vaccine Aged Out No longe r eligible based on patient's age to complete this topic Procedures Procedure Name Priority Date/Time Associated Diagnosis Comments URINE ALBUMIN / CREATININE RATIO Routine 07/10/2025 1:25 PM EDT Chronic kidney disease, stage 2 (mild) Hypertension Proteinuria, not otherwise specified PROTEIN / CREATININE RATIO, URINE Routine 07/10/2025 1:25 PM EDT Chronic kidney disease, stage 2 (mild) Hypertension Proteinuria, not otherwise specified VITAMIN D 25 HYDROXY Routine 07/10/2025 1:25 PM EDT Vitamin D deficiency, not otherwise specified BASIC METABOLIC PANEL Routine 07/10/2025 1:24 PM EDT Chronic kidney disease, stage 2 (mild) Hypertension from Last 3 Months Results * (ABNORMAL) Urine Protein / creatinine ratio (07/10/2025 1:25 PM EDT) Creatinine, Ur 81.3 Not Estab. mg/dL [facility] Protein, Ur 192.3 Not Estab. mg/dL [facility] Urine Protein/Creati nine Ratio 2,365(H) 0 - 200 mg/g creat [facility] Urine Urine specimen obtained by clean catch procedure / Unknown 07/10/2025 1:25 PM EDT 07/10/2025 Cintia Spencer [facility] LAB URINE ORDERABLES Final Result [facility] [address] [place] [phone] * (ABNORMAL) Urine Albumin / Creatinine Ratio (07/10/2025 1:25 PM EDT) Albumin, Urine 1,162.2 Not Estab. ug/mL [facility] Comment: Results confirmed on dilution. Albumin/Creatin ine Ratio 1,430(H) 0 - 29 mg/g creat [facility] Comment: Normal: 0 - 29 Moderately increased: 30 - 300 Severely increased: >300 Urine Urine specimen obtained by clean catch procedure / Unknown 07/10/2025 1:25 PM EDT 07/10/2025 Cintia [facility] LAB URINE ORDERABLES Final Result Performing Organization Address City/[facility]/ZIP Co de Phone Number [facility] [address] [place] [address] * Vitamin D 25 hydroxy (07/10/2025 1:25 PM EDT) Vitamin D, 25-OH, Total 32.9 30.0 - 100.0 ng/mL [facility] Comment: Vitamin D deficiency has been defined by the [place] of [employer] and an Endocrine Society practice guideline as a level of serum 25-OH vitamin D less than 20 ng/mL (1,2). The Endocrine Society went on to further define vitamin D insufficiency as a level between 21 and 29 ng/mL (2). 1. IOM ([place] of Medicine). 2010. Dietary reference intakes for calcium and D. [place]: The National Academies Press. 2. Tray MF, Kvng BANKS, Meggan FIGUEROA, et al. Evaluation, treatment, and prevention of vitamin D deficiency: an Endocrine Society clinical practice guideline. JCEM. 2010; 96(7):1911-30. Blood Venous blood / Unknown 07/10/2025 1:25 PM EDT 07/10/2025 Cintia [facility] LAB BLOOD ORDERABLES Final Result [facility] [address] [place] [address] * (ABNORMAL) Basic metabolic panel (07/10/2025 1:24 PM EDT) Glucose 224(H) 70 - 99 mg/dL [facility] BUN 29(H) 8 - 27 mg/dL [facility] Creatinine 0.99 0.76 - 1.27 mg/dL [facility] eGFR CKD-EPI CR 2020 76 >59 mL/min/1.7 3 [facility] BUN/Creatinine Ratio 29(H) 10 - 24 [facility] Sodium 139 134 - 144 mmol/L [facility] Potassium 5.8(H) 3.5 - 5.2 mmol/L [facility] Chloride 102 96 - 106 mmol/L [facility] Bicarbonate (CO2) 18(L) 20 - 29 mmol/L [facility] Calcium 9.0 8.6 - 10.2 mg/dL [facility] Blood Venous blood / Unknown 07/10/2025 1:24 PM EDT 07/10/2025 Cintia [facility] LAB BLOOD ORDERABLES Final Result [facility] [address] [place] [phone] from Last 3 Months Insurance [facility] Care Teams Adobe Developer Relationship Specialty Start Date End Date Malachi Victor MD [address] [place] [phone] PCP - General 11/11/20
== END 2025-08-01 10:47 | disposition home or self-care (01) ==
LOC: HO.HSMS 10:05
PROVIDERS: PCP Internal Medicine; Visit Provider Psychiatry & Neurology Neurology
DX: G20.A1 Parkinson's disease without dyskinesia, without mention of fluctuations (principal); F03.A0 Unspecified dementia, mild, without behavioral disturbance, psychotic disturbance, mood disturbance, and anxiety; G47.33 Obstructive sleep apnea (adult) (pediatric)
CPT/HCPCS: 99214; G2211

== ENCOUNTER → 2025-08-01 10:04 | Outpatient (BNVA) | payer MEDICARE, SELFPAY | PROVIDERS: PCP Internal Medicine; Visit Provider Psychiatry & Neurology Neurology | DX: G20.A1 Parkinson's disease without dyskinesia, without mention of fluctuations (principal); F03.A0 Unspecified dementia, mild, without behavioral disturbance, psychotic disturbance, mood disturbance, and anxiety; G47.33 Obstructive sleep apnea (adult) (pediatric) | CPT/HCPCS: 99212 ==